=== PATIENT | female | born 1930 | race Caucasian/White ===

== ENCOUNTER 2019-02-03 04:31 | Inpatient (IN) | payer MEDICARE, OTHER ==
[~2019-02-03] VITALS: Ht 162.6 cm; Wt 68.0 kg
[2019-02-03] VITALS (7 sets, daily range): BP systolic 115–138; BP diastolic 48–74
--- OUTSIDE RECORDS SUMMARY | 2019-02-03 04:33 | XMS REPORT ---
Author Author [facility] Address Unknown Phone Unavailable Care Team Providers Care Manager Shipping Name Role Phone Unavailable Unavailable Payers Payer Name Policy Type Policy Number Effective Date Expiration Date Problems This patient has no known problems. Allergies, Adverse Reactions, Alerts Allergy Name Allergy Type Status Severity Reaction(s) Onset Date Inactive Date Treating Clinician Comments mexiletine DA Active U 2014-01-04 00:00:00 metoclopramide DA Active U 2014-01-04 00:00:00 .DIPYRIDAM DA Active U 2002-04-13 00:00:00 BANDAIDS DA Active U 2002-04-13 00:00:00 Medications This patient has no known medications.
--- OUTSIDE RECORDS SUMMARY | 2019-02-03 04:33 | XMS REPORT ---
Author Author Harley Bray [facility] eClinicalWorks Address Unknown Phone Unavailable Care Team Providers Care Dental Assistant Name Role Phone Harley Bray Unavailable Allergies, Adverse Reactions, Alerts Substance Reaction Event Type N.K.D.A. Info Not Available Non Drug Allergy Problems Problem Type Condition Code Onset Dates Condition Status Problem Knee osteoarthritis M17.9 Active Problem Hip pain M25.559 Active Problem Leg pain M79.606 Active Assessment Knee osteoarthritis M17.9 Active Assessment Hip pain M25.559 Active Assessment Leg pain M79.606 Active Medications Medication Code System Code Instructions Start Date End Date Status Dosage Gemfibrozil [facility] 12073378417 600 MG Orally Twice a day Active 1 tablet Clonazepam [facility] 40407593195 0.5 MG Orally Once a day Active 1 tablet at bedtime Meclizine HCl [facility] 89929319728 25 MG Orally Once a day Active 1 tablet as needed Atenolol [facility] 43547571750 25 MG Orally Once a day Active 1 tablet Xarelto [facility] 89064505449 15 MG Orally Once a day Active 1 tablet with food Quetiapine Fumarate ND 94734160932 25 MG Orally Once a day Active 1 tablet Synvisc One [facility] 37471816589 48 MG/6ML Intra-articular January 17, 2019 Active bl knees Gabapentin ND 44848513654 100 MG Orally qhs January 17, 2019 Active 1 capsule Prilosec [facility] [address]-29 20 MG Orally Once a day Active 1 capsule Vital Signs Date/Time: January 17, 2019 BMI 22.68 Index Weight 124.0 lbs Height 62 in Temperature 98.6 F Cardiac Monitoring Heart Rate 62 /min Blood Pressure Diastolic 64 mm Hg Blood Pressure Systolic 124 mm Hg Results No Known Results Summary Purpose eClinicalWorks Submission
--- OUTSIDE RECORDS SUMMARY | 2019-02-03 04:33 | XMS REPORT | Continuity of Care Document ---
Author Author [facility] Address Unknown Phone Unavailable Problems Problem Status Onset Date Classification Date Reported Comments Source Knee osteoarthritis Active Problem 01/19/2019 Karthikeyancarleen Ramos Hip pain Active Problem 01/19/2019 Karthikeyan Delucaer Leg pain Active Problem 01/19/2019 Karthikeyan Ramos Medications Medication Details Route Status Patient Instructions Ordering Provider Order Date Source Synvisc One bl knees Intra-articular Active 48 MG/6ML Intra-articular Katarina 01/17/2019 Karthikeyan Ramos Gabapentin 1 capsule Orally Active 100 MG Orally qhs Katarina 01/17/2019 Karthikeyan Ramos Gemfibrozil 1 tablet Orally Active 600 MG Orally Twice a day Katarina Karthikeyan Ramos Clonazepam 1 tablet at bedtime Orally Active 0.5 MG Orally Once a day Katarina Karthikeyan Ramos Meclizine HCl 1 tablet as needed Orally Active 25 MG Orally Once a day Katarina Karthikeyan Ramos Atenolol 1 tablet Orally Active 25 MG Orally Once a day Katarina Karthikeyan Ramos Xarelto 1 tablet with food Orally Active 15 MG Orally Once a day Katarina Karthikeyan Ramos Quetiapine Fumarate 1 tablet Orally Active 25 MG Orally Once a day Katarina Karthikeyan Ramos Prilosec 1 capsule Orally Active 20 MG Orally Once a day Katarina Karthikeyan Ramos Allergies, Adverse Reactions, Alerts Substance Category Reaction Severity Reaction type Status Date Reported Comments Source N.K.D.A. Adverse Reaction Info Not Available Adverse Reaction Active 01/17/2019 Karthikeyan Ramos Immunizations Immunization Date Given Site Status Last Updated Comments Source Results Order Name Results Value Reference Range Date Interpretation Comments Source Vital Signs Vital Sign Value Date Comments Source Weight 124.0 01/17/2019 Karthikeyan Ramos Height 62 01/17/2019 Karthikeyan Ramos Temperature Oral (F) 98.6 F 01/17/2019 Karthikeyan Ramos Heart Rate 62 01/17/2019 Karthikeyan Ramos Diastolic (mm Hg) 64 01/17/2019 Karthikeyan Ramos Systolic (mm Hg) 124 01/17/2019 Karthikeyan Ramos Encounters Location Location Details Encounter Type Encounter Number Reason For Visit Attending Provider ADM Date DC Date Status Source Procedures Procedure Code Date Perfomer Comments Source
[2019-02-03 05:21] LABS: EOSINOPHILS # (AUTO) 0.1 (0.0-0.4); EOSINOPHILS % 1.1 % (0.0-6.0); LYMPHOCYTES # (AUTO) 1.3 (1.0-3.2); LYMPHOCYTES % 14.1 % (18.0-39.1); MEAN CORPUSCULAR HEMOGLOBIN 20.6 pg (28-32); MEAN CORPUSCULAR HGB CONC 25.9 g/dL (31-35); MEAN CORPUSCULAR VOLUME 79.4 fL (81-99); MONOCYTES # (AUTO) 0.5 (0.2-0.8); MONOCYTES % 5.7 % (4.4-11.3); NEUTROPHILS % 78.6 % (38.7-80.0); PLATELET COUNT 456 x10e3/uL (140-360); RED BLOOD COUNT 1.75 x10e6/uL (3.6-5.1)
[2019-02-03 05:32] LABS: INR 2.08; PROTHROMBIN TIME 24.1 seconds (11.9-14.5)
[2019-02-03 05:32] LABS: HEMATOCRIT 13.9 % (34.2-44.1); HEMOGLOBIN 3.6 g/dL (12.0-16.0)
[2019-02-03 05:33] LABS: PARTIAL THROMBOPLASTIN TIME 34.2 seconds (23.8-35.5)
--- NOTE | 2019-02-03 05:33 | Diagnostic Imaging Report ---
History:Syncope Comparison studies: None Technique: Axial images were obtained from the skull base to the vertex. Coronal and sagittal images reconstructed from the axial data. Dose modulation, iterative reconstruction, and/or weight based adjustment of the mA/kV was utilized to reduce the radiation dose to as low as reasonably achievable. Intravenous contrast: None Findings: Scalp/skull: No abnormalities. Extra-axial spaces: No masses. No fluid collections. Brain sulci: Mild prominent. Ventricles: Mild compensatory dilatation. No hydrocephalus. Parenchyma: Scattered, ill-defined hypodensities in the supratentorial white matter are small vessel ischemic changes. No masses, hemorrhage, acute or chronic cortical vascular insults. Sellar/suprasellar region: No abnormalities. Craniocervical junction: Patent foramen magnum. No Chiari one malformation. Incidental findings: Atherosclerotic calcifications in the carotid siphons . Impression: No acute abnormalities. Chronic findings: 1. Mild generalized volume loss. 2. Mild supratentorial white matter small vessel ischemic changes. Signed by: Dr. David Gresham M.D. on 02/03/2019 5:30 AM
[2019-02-03 05:40] LABS: ALBUMIN 2.2 g/dL (3.5-5.0); ALBUMIN/GLOBULIN RATIO 0.7 (0.8-2.0); ALKALINE PHOSPHATASE 43 IU/L (40-150); ANION GAP 13.4 mmol/L (8-16); BLOOD UREA NITROGEN 53 mg/dL (7-26); BUN/CREATININE RATIO 38 (6-25); CALCIUM 8.2 mg/dL (8.4-10.2); CARBON DIOXIDE 18 mmol/L (22-29); CHLORIDE 109 mmol/L (98-107); CREATINE KINASE 43 IU/L (29-168); CREATININE, SERUM 1.41 mg/dL (0.57-1.11); EST GLOMERULAR FILTRATION RATE 35 ML/MIN (60-); GLUCOSE 235 mg/dL (74-118); LIPASE 37 U/L (8-78); POTASSIUM 5.4 mmol/L (3.5-5.1); SODIUM 135 mmol/L (136-145)
--- NOTE | 2019-02-03 05:42 | Diagnostic Imaging Report ---
Examination: Single AP view of the chest. COMPARISON: None. INDICATION: Syncope IMPRESSION: 1. Lines and Tubes: None 2. Lungs are grossly clear. No consolidation or effusion. 3. Cardiomediastinal silhouette is normal. Pulmonary vasculature is normal. 4. No acute bony abnormalities. Signed by: Dr. Brad Valadez M.D. on 02/03/2019 5:39 AM
[2019-02-03 05:44] LABS: ALANINE AMINOTRANSFERASE < 6 IU/L (0-55)
[2019-02-03] MEDS ORDERED: SODIUM CHLORIDE 0.9% 250ML 250 ML IV ONE (05:45)
--- NOTE | 2019-02-03 06:06 | NUR ---
CONSENT OBTAINED FOR TRANSFUSION OF BLOOD PRODUCTS
[2019-02-03] MEDS ORDERED: GEMFIBROZIL600 MG PO (06:11)
[2019-02-03] MEDS ORDERED: QUETIAPINE FUMA25 MG PO (06:11)
[2019-02-03] MEDS ORDERED: CLONAZEPAM0.5 MG PO (06:11)
[2019-02-03] MEDS ORDERED: GABAPENTIN100 MG PO (06:11)
[2019-02-03] MEDS ORDERED: ATENOLOL50 MG PO (06:11)
[2019-02-03] MEDS ORDERED: XARELTO15 MG PO (06:11)
[2019-02-03] MEDS ORDERED: GLIPIZIDE XL2.5 MG PO (06:11)
[2019-02-03] MEDS ORDERED: MONTELUKAST SOD10 MG PO (06:11)
--- NOTE | 2019-02-03 06:36 | NUR ---
FIRST UNIT OF BLOOD STARTED, WILL CONTINUE TO MONITOR
[2019-02-03] MEDS ORDERED: SOD POLYSTYRENE SULFONATE SUSP 15 GM/60 ML BTL PO ONE (07:00)
--- NOTE | 2019-02-03 07:01 | NUR ---
REPORT TO NU WEINERN
--- NOTE | 2019-02-03 07:02 | NUR ---
received report from off going nurse. patient in room in bed. receiving blood(1st unit). family at bedside. pending ICU room assignemnt. bed down call light in reach, will continue to monitor.
[2019-02-03] MEDS ORDERED: DEXTROSE 50% SYRINGE 50 ML IV PRN ×2 (07:30→14:00)
[2019-02-03] MEDS ORDERED: CALCIUM GLUCONATE 10% INJ 4.65 MEQ in SODIUM CHLORIDE 0.9% 50ML 50 ML IV ONE (07:45)
[2019-02-03] MEDS ORDERED: FUROSEMIDE INJ 10 MG/ML 2 ML VIAL IV ONE (08:00)
[2019-02-03] MEDS: INSULIN REGULAR, HUMAN 100 UNIT/1 ML 3ML VIAL SQ SCH ×5 (08:42→21:30)
--- NOTE | 2019-02-03 09:10 | NUR ---
completed 1st unit PRBC with LISETTE.
--- NOTE | 2019-02-03 09:23 | NUR ---
started second unit PRBC.
--- NOTE | 2019-02-03 10:28 | NUR ---
patient acidentially removed iv access to left ac. blood products continued in 20g to left forearm. patient, bedding and bedside monitor cleaned.
[2019-02-03] MEDS ORDERED: MONTELUKAST SODIUM 10 MG TAB PO PRN (12:15)
[2019-02-03] MEDS ORDERED: PANTOPRAZOLE 40 MG 10ML VIAL IV SCH (12:30)
[2019-02-03] MEDS ORDERED: ONDANSETRON HCL INJ 2MG/ML 2ML 2 MG/ML VIAL IV PRN (12:30)
[2019-02-03] MEDS ORDERED: HYDRALAZINE HCL 20 MG/ML VIAL IV PRN (12:30)
--- NOTE | 2019-02-03 12:35 | NUR ---
STARTED THIRD UNIT PRBC
[2019-02-03] MEDS ORDERED: FUROSEMIDE INJ 10 MG/ML 4 ML VIAL IV ONE (14:00)
[2019-02-03 14:30] LABS: CREATINE KINASE MB 1.1 ng/mL (0-5.0)
[2019-02-03] MEDS: PANTOPRAZOLE SOD 40 MG TABEC PO SCH ×2 (14:49→17:09)
[2019-02-03] MEDS: GABAPENTIN 100 MG CAP PO SCH (14:49)
[2019-02-03] MEDS: ACETAMINOPHEN 325 MG TAB PO PRN (14:49)
[2019-02-03 14:52] LABS: CLARITY,URINE SL CLOUDY (CLEAR); COLOR,URINE YELLOW (YELLOW)
[2019-02-03 14:53] LABS: LEUKOCYTE ESTERASE ,URINE 2+ (NEGATIVE); NITRITE,URINE NEGATIVE (NEGATIVE)
[2019-02-03 14:54] LABS: BILIRUBIN,URINE NEGATIVE (NEGATIVE); KETONES,URINE NEGATIVE (NEGATIVE); PROTEIN,URINE DIPSTICK NEGATIVE (NEGATIVE); URINE UROBILINOGEN 0.2 mg/dL (0.2 - 1)
[2019-02-03 14:57] LABS: WBC,URINE (MAN) 21-50 /HPF (0-5)
[2019-02-03 14:58] LABS: BACTERIA,URINE MANY /HPF; EPITHELIAL CELLS,URINE RARE /LPF; RBC,URINE 0-5 /HPF (0-5)
[2019-02-03] MEDS ORDERED: INSULIN LISPRO 100 UNIT/1 ML 3ML VIAL SQ SCH (16:30)
[2019-02-03] MEDS: GLIPIZIDE 2.5 MG TABCR PO SCH (17:09)
[2019-02-03] MEDS: QUETIAPINE FUMARATE 25 MG TAB PO SCH (17:09)
[2019-02-03] MEDS: OYST-CAL-D 500MG TABLET PO SCH (17:09)
[2019-02-03] MEDS: GEMFIBROZIL 600 MG TAB PO SCH (17:09)
[2019-02-03 20:06] LABS: HEMATOCRIT 29.2 % (34.2-44.1); HEMOGLOBIN 9.3 g/dL (12.0-16.0)
--- NOTE | 2019-02-03 20:26 | NUR ---
Spoke to Dr. Hubbard regarding recheck of Hgb level of 9.[address] Hubbard ordered to give 1 more unit of PRBC and hold 1 unit PRBC. Total PRBCs to give is 5 units.
[2019-02-03] MEDS ORDERED: CLONAZEPAM 0.5 MG TAB PO SCH (21:00)
[2019-02-03] MEDS ORDERED: SODIUM CHLORIDE 0.9% 250ML 250 ML ONE (22:11)
[2019-02-04] VITALS (21 sets, daily range): BP systolic 91–146; BP diastolic 48–94
[2019-02-04 04:49] LABS: BASOPHILS # (AUTO) 0.1 (0.0-0.1); BASOPHILS % 0.6 % (0.0-1.0); EOSINOPHILS # (AUTO) 0.2 (0.0-0.4); EOSINOPHILS % 1.6 % (0.0-6.0); HEMATOCRIT 33.1 % (34.2-44.1); HEMOGLOBIN 10.8 g/dL (12.0-16.0); LYMPHOCYTES # (AUTO) 2.1 (1.0-3.2); LYMPHOCYTES % 22.6 % (18.0-39.1); MEAN CORPUSCULAR HEMOGLOBIN 26.7 pg (28-32); MEAN CORPUSCULAR HGB CONC 32.6 g/dL (31-35); MEAN CORPUSCULAR VOLUME 81.9 fL (81-99); MONOCYTES # (AUTO) 0.8 (0.2-0.8); MONOCYTES % 8.9 % (4.4-11.3); NEUTROPHILS # (AUTO) 6.3 (2.1-6.9); NEUTROPHILS % 66.1 % (38.7-80.0); PLATELET COUNT 331 x10e3/uL (140-360); RED BLOOD COUNT 4.04 x10e6/uL (3.6-5.1); RED CELL DISTRIBUTION WIDTH 17.2 % (11.7-14.4)
[2019-02-04 05:14] LABS: ANION GAP 11.5 mmol/L (8-16); CALCIUM 8.7 mg/dL (8.4-10.2); CREATININE, SERUM 1.32 mg/dL (0.57-1.11); MAGNESIUM 1.5 MG/DL (1.3-2.1)
[2019-02-04 05:15] LABS: POTASSIUM 3.5 mmol/L (3.5-5.1)
[2019-02-04 05:26] LABS: B-TYPE NATRIURETIC PEPTIDE2 160.9 pg/mL (0-100)
[2019-02-04 05:39] LABS: FREE T4 (FREE THYROXINE) 0.68 ng/dL (0.9-1.8); THYROID STIMULATING HORMONE 1.693 uIU/mL (0.350-4.940)
[2019-02-04 05:41] LABS: FERRITIN 12.36 ng/mL (4.63-204.00)
[2019-02-04 05:52] LABS: FOLATE 13.1 ng/mL (7.0-15.4)
[2019-02-04 06:52] LABS: CREATINE KINASE MB 1.3 ng/mL (0-5.0)
--- NOTE | 2019-02-04 07:20 | NUR ---
PATIENT RECEIVED AWAKE, ALERT AND OX2 TO PERSON AND PLACE. REORIENTED TO DATE AND TIME. RESPIRATIONS ARE EVEN AND UNLABORED AND ON 02 AT 2 LITERS PER NASAL CANNULA AND TOLERATING WELL WITH 02 SATS AT 100%. DAUGHTER AT BEDSIDE. V/S ARE STABLE.
[2019-02-04] MEDS: GLIPIZIDE 2.5 MG TABCR PO SCH ×2 (07:30→16:56)
[2019-02-04] MEDS: PANTOPRAZOLE SOD 40 MG TABEC PO SCH (07:30)
[2019-02-04] MEDS: INSULIN REGULAR, HUMAN 100 UNIT/1 ML 3ML VIAL SQ SCH ×4 (07:30→20:26)
--- NOTE | 2019-02-04 07:30 | NUR ---
PATIENT RECEIVED SEDATED ON PROPOFOL DRIP AT 30MCG AND FENTANYL DRIP AT 25MCG AND TOLERATING WELL WHILE ON ETT TO VENT: PRVC-18; FIO2-40%; TV-450 AND PEEP-5 AND 02 SATS ARE 100%. RESPIRATIONS ARE EVEN AND UNLABORED. V/S ARE STABLE.
--- NOTE | 2019-02-04 07:35 | NUR ---
DISREGARD PREVIOUS ENTRY. ENTERED IN ERROR ON WRONG PATIENT
[2019-02-04] MEDS ORDERED: CLONAZEPAM 0.5 MG TAB PO SCH (09:00)
[2019-02-04] MEDS: GEMFIBROZIL 600 MG TAB PO SCH ×2 (09:21→16:56)
[2019-02-04] MEDS: CLONAZEPAM 0.5 MG TAB PO SCH ×2 (09:21→16:56)
[2019-02-04] MEDS: ATENOLOL 50 MG TAB PO SCH (09:22)
[2019-02-04] MEDS: QUETIAPINE FUMARATE 25 MG TAB PO SCH ×2 (09:22→20:33)
[2019-02-04] MEDS: OYST-CAL-D 500MG TABLET PO SCH ×2 (09:22→16:56)
[2019-02-04] MEDS ORDERED: FUROSEMIDE INJ 10 MG/ML 4 ML VIAL ONE (09:31)
--- NOTE | 2019-02-04 10:00 | NUR ---
DR. HERNANDEZ HERE TO SEE PATIENT FOR DR. CARRASCO
[2019-02-04] MEDS: CEFEPIME 1GM/NS 0.9% 50 ML 50 ML IV SCH (12:00)
[2019-02-04] MEDS ORDERED: PANTOPRAZOLE INJ 40 MG in SODIUM CHLORIDE 0.9% 50ML 50 ML IV SCH (14:30)
[2019-02-04 15:26] LABS: BASOPHILS # (AUTO) 0.1 (0.0-0.1); BASOPHILS % 0.8 % (0.0-1.0); EOSINOPHILS # (AUTO) 0.2 (0.0-0.4); EOSINOPHILS % 2.4 % (0.0-6.0); HEMATOCRIT 32.3 % (34.2-44.1); HEMOGLOBIN 10.6 g/dL (12.0-16.0); LYMPHOCYTES # (AUTO) 2.1 (1.0-3.2); LYMPHOCYTES % 26.1 % (18.0-39.1); MEAN CORPUSCULAR HEMOGLOBIN 26.9 pg (28-32); MEAN CORPUSCULAR HGB CONC 32.8 g/dL (31-35); MONOCYTES # (AUTO) 0.9 (0.2-0.8); MONOCYTES % 11.4 % (4.4-11.3); NEUTROPHILS # (AUTO) 4.7 (2.1-6.9); NEUTROPHILS % 58.9 % (38.7-80.0); PLATELET COUNT 303 x10e3/uL (140-360); RED BLOOD COUNT 3.94 x10e6/uL (3.6-5.1); RED CELL DISTRIBUTION WIDTH 17.4 % (11.7-14.4)
[2019-02-04] MEDS ORDERED: SODIUM CHLORIDE 0.9% 250ML 250 ML ONE (15:33)
--- NOTE | 2019-02-04 18:18 | Consultation ---
DATE OF CONSULTATION: CHIEF COMPLAINT: GI bleed. HISTORY OF PRESENT ILLNESS: Very pleasant 88-year-old lady, came in hemoglobin of 3.9, associated with melena for a month. She takes Xarelto. She denies abdominal pain. She denies hematemesis. PAST MEDICAL HISTORY: Diabetes, neuropathy, atrial fibrillation, and hypertension. PAST SURGICAL HISTORY: Cholecystectomy, tooth extraction, appendectomy, and hysterectomy. FAMILY HISTORY: Noncontributory. SOCIAL HISTORY: The patient is retired. She has no toxic habits. ALLERGIES: NO SIGNIFICANT. MEDICATIONS: See list that includes Xarelto and occasional Prilosec. PHYSICAL EXAMINATION: VITAL SIGNS: Blood pressure 140/80, pulse 70, temperature 98. GENERAL: Well-nourished elderly lady in no distress. HEENT: No pallor. HEART: No rales. LUNGS: Clear. ABDOMEN: Soft, nontender. EXTREMITIES: No edema. ASSESSMENT AND PLAN: Upper gastrointestinal bleed with ulcer. The patient is on Xarelto, we will start Protonix drip. Transfuse as necessary, she already had 5 units of packed rbcs and EGD in the morning. MD KERWIN TyO/MODFermín /[id number]
--- NOTE | 2019-02-04 18:53 | Consultation ---
DATE OF CONSULTATION: 02/04/2019 Cardiology Consultation Thank you so much for asking us to see this nice lady again in consultation. Ms. Garcia is an elderly 88-year-old woman, followed in our office by Dr. Barnes. CHIEF COMPLAINT: She presents to the emergency room today with complaints of weakness and passing out. HISTORY OF PRESENT ILLNESS: Primarily obtained from her son, who reports that she had gone to the bathroom, sitting on the toilet, and became unresponsive. He thinks he noticed some tonic-clonic motion. She has no known history of seizure disorder. The patient admits that she has been having black stools for a couple of weeks, but did not seek further evaluation of this problem. PAST MEDICAL HISTORY: Significant for intermittent atrial fibrillation with probable previous TIAs or strokes. She is known to have nonsustained ventricular tachycardia and wandering atrial pacemaker, longstanding diabetes, hyperlipidemia, and some renal insufficiency. PAST SURGICAL HISTORY: Includes bladder surgery, foot surgery, and hysterectomy. FAMILY HISTORY: Father of myocardial infarction, age 84. HOME MEDICATIONS: Include Prilosec 20 mg daily, glipizide 2.5 mg twice a day, gemfibrozil 600 mg twice a day, meclizine p.r.n., atenolol 50 mg half tablet daily, and Xarelto 15 mg daily. ALLERGIES: SHE REPORTS BEING ALLERGIC TO MEXILETINE. PHYSICAL EXAMINATION: GENERAL: At this time shows a very elderly white woman, who is awake, poor historian, perhaps unreliable, thin. VITAL SIGNS: Blood pressure is 100/60, heart rate is 70 with prematures, both PACs and PVCs. HEAD, EYES, EARS, NOSE, AND THROAT: Unremarkable. NECK: No jugular venous distention. THORAX: Heart sounds S1, S2 are equal with prematures. There are faint crackles in the right upper lobe. ABDOMEN: Protuberant, nontender. No masses. EXTREMITIES: Thin. No cyanosis, clubbing, edema. PERTINENT INITIAL LABORATORY: Show hemoglobin of 3.6, INR 2.0, platelet count 456,000. ASSESSMENTS: 1. Profound anemia. 2. Gastrointestinal bleeding. 3. History of intermittent atrial fibrillation. 4. Diabetes. PLAN: I agree with the transfusion. We will withhold Xarelto. We will follow her closely with you. Thank you for asking me to see her in consultation. MD GLADIS Mclaughlin /[id number]
--- NOTE | 2019-02-04 21:45 | NUR ---
Patient brought icu, patient is stable, patient has a family member at the bed side, patient POA came in at about 0300, ICU nurse endorse to me that patient POA has agreed to sign consent, she refused to sign when she came in, she also refused am care of patient, stated was too early.
[2019-02-04] MEDS: PANTOPRAZOLE INJ 40 MG in SODIUM CHLORIDE 0.9% 50ML 50 ML IV SCH (22:24)
[2019-02-05] VITALS (7 sets, daily range): BP systolic 113–158; BP diastolic 55–84
--- NOTE | 2019-02-05 00:08 | NUR ---
Patient POA refused to consent for EGD, states wants to speak to Pravinadi first in the morning before signing.
[2019-02-05] MEDS: CEFEPIME 1GM/NS 0.9% 50 ML 50 ML IV SCH ×2 (00:55→12:30)
[2019-02-05] MEDS: PANTOPRAZOLE INJ 40 MG in SODIUM CHLORIDE 0.9% 50ML 50 ML IV SCH ×5 (03:37→23:30)
--- NOTE | 2019-02-05 06:14 | Diagnostic Imaging Report ---
Examination: Single AP view of the chest. COMPARISON: AP chest 02/03/2019 INDICATION: Aspiration pneumonia IMPRESSION: 1. Lines and Tubes: None 2. Lungs are well-inflated. Rounded convexity projecting in the posterior retrocardiac region, which may represent a hiatal hernia. No consolidation or effusion. Recommend chest PA and lateral for further evaluation. 3. Stable enlargement of the cardiac silhouette. Pulmonary vasculature is normal. 4. No acute bony abnormalities. Signed by: Dr. Brad Valadez M.D. on 02/05/2019 6:11 AM
[2019-02-05 06:38] LABS: ANION GAP 12.4 mmol/L (8-16); CALCIUM 8.8 mg/dL (8.4-10.2); CREATININE, SERUM 1.23 mg/dL (0.57-1.11); MAGNESIUM 1.6 MG/DL (1.3-2.1); POTASSIUM 3.4 mmol/L (3.5-5.1)
--- NOTE | 2019-02-05 07:29 | NUR ---
Patient condition throughout the day was stable, patient endorsed to next shift for continuity of care.
[2019-02-05] MEDS: GLIPIZIDE 2.5 MG TABCR PO SCH ×2 (07:30→17:40)
[2019-02-05] MEDS: INSULIN REGULAR, HUMAN 100 UNIT/1 ML 3ML VIAL SQ SCH ×4 (07:30→21:37)
[2019-02-05] MEDS ORDERED: ACETAMINOPHEN 1000 MG/100 ML IV ONE (07:45)
[2019-02-05] MEDS: GEMFIBROZIL 600 MG TAB PO SCH ×2 (09:00→17:40)
[2019-02-05] MEDS: QUETIAPINE FUMARATE 25 MG TAB PO SCH ×2 (09:00→21:37)
[2019-02-05] MEDS: CLONAZEPAM 0.5 MG TAB PO SCH ×2 (09:00→17:40)
[2019-02-05] MEDS: OYST-CAL-D 500MG TABLET PO SCH ×2 (09:00→17:40)
--- NOTE | 2019-02-05 09:51 | NUR ---
Patient is on the schedule for EGD today by Dr. Lara. The POA is present and will not sign the consent until she has spoken to Dr. Lara about the procedure. Paged Dr. Lara to notify him and also to see if he needs cardiac clearance on this patient. Waiting nurses' association counselor back.
--- NOTE | 2019-02-05 10:05 | NUR ---
PRADEEPA signed the consent.
--- NOTE | 2019-02-05 11:30 | NUR ---
Notified Dr. Alvarez that photo lab technician reported a type 2 heart block on the monitor , EKG was done which now shows SR with type 1 block, no new orders received at this time. Also notified Dr. Alvarez that patient is scheduled for EGD later today, he stated, "that is fine".
--- NOTE | 2019-02-05 12:53 | NUR ---
ST note: Order for bedside swallow eval noted. Pt NPO for EGD. Will f/u later today time permitting or tomorrow 02/06/19.
[2019-02-05] MEDS ORDERED: POTASSIUM CHLORIDE 20 MEQ TAB CR PO STA (13:11)
[2019-02-05] MEDS ORDERED: BENZOCAINE/TETRACAINE/BUTAMBEN AERO SPRAY 56 GM CAN ONE (14:38)
--- NOTE | 2019-02-05 15:04 | NUR ---
CM TO BEDSIDE TO GIVE IMM LETTER. PATIENT NOT IN ROOM D/T EGD. CM WILL F/U ON 02/06/19 TO GIVE IMM.
--- NOTE | 2019-02-05 15:35 | NUR ---
Received recovery report from Heather , Patient is s/p EGD and is coming to back to room 294.
--- NOTE | 2019-02-05 16:00 | NUR ---
Patient arrived back to the floor , She is awake alert and oriented x2. Her son is with her. She has no complaints at this time and denies needing anything. Will continue to monitor.
[2019-02-05] MEDS: GABAPENTIN 100 MG CAP PO SCH (17:39)
[2019-02-05] MEDS: ATENOLOL 50 MG TAB PO SCH (17:40)
--- NOTE | 2019-02-05 19:10 | NUR ---
Bedside rounds completed with morning nurse. Pt alert to name sitting on BS commode. Denies pain at this time. No acute distress noted. Family at bedside. Call wetzel within reach. Bed low and locked.
[2019-02-05] MEDS ORDERED: PROPOFOL IV EMULSION 10 MG/ML 20 ML VIAL ONE (20:07)
[2019-02-05] MEDS ORDERED: PANTOPRAZOLE 40 MG 10ML VIAL ONE (23:07)
[2019-02-06] VITALS (7 sets, daily range): BP systolic 120–139; BP diastolic 56–65
[2019-02-06] MEDS ORDERED: SODIUM CHLORIDE 0.9% 50ML 50 ML ONE ×3 (00:12→13:20)
[2019-02-06] MEDS: CEFEPIME 1GM/NS 0.9% 50 ML 50 ML IV SCH ×2 (00:32→13:00)
[2019-02-06] MEDS ORDERED: PANTOPRAZOLE 40 MG 10ML VIAL ONE ×4 (02:32→20:43)
[2019-02-06 04:43] LABS: BASOPHILS # (AUTO) 0.1 (0.0-0.1); EOSINOPHILS # (AUTO) 0.4 (0.0-0.4); EOSINOPHILS % 5.6 % (0.0-6.0); HEMATOCRIT 33.1 % (34.2-44.1); HEMOGLOBIN 10.5 g/dL (12.0-16.0); LYMPHOCYTES % 15.3 % (18.0-39.1); MEAN CORPUSCULAR HGB CONC 31.7 g/dL (31-35); MONOCYTES # (AUTO) 0.8 (0.2-0.8); NEUTROPHILS # (AUTO) 4.4 (2.1-6.9); NEUTROPHILS % 65.7 % (38.7-80.0); PLATELET COUNT 289 x10e3/uL (140-360); RED BLOOD COUNT 3.89 x10e6/uL (3.6-5.1)
[2019-02-06] MEDS: PANTOPRAZOLE INJ 40 MG in SODIUM CHLORIDE 0.9% 50ML 50 ML IV SCH ×3 (04:45→13:30)
[2019-02-06 04:47] LABS: MEAN CORPUSCULAR VOLUME 85.1 fL (81-99)
[2019-02-06 04:56] LABS: ANION GAP 10.5 mmol/L (8-16); CALCIUM 8.6 mg/dL (8.4-10.2); CREATININE, SERUM 1.25 mg/dL (0.57-1.11); MAGNESIUM 1.7 MG/DL (1.3-2.1); POTASSIUM 3.5 mmol/L (3.5-5.1)
[2019-02-06] MEDS: INSULIN REGULAR, HUMAN 100 UNIT/1 ML 3ML VIAL SQ SCH ×4 (07:30→20:57)
[2019-02-06] MEDS ORDERED: BISACODYL 5 MG TAB EC PO NR (07:30)
[2019-02-06] MEDS ORDERED: PEG (High)/E-LYTE SOLN 4,000 ML BTL PO NR (08:30)
--- NOTE | 2019-02-06 10:00 | NUR ---
Bowel prep started for colonoscopy scheduled 02/07/19.
[2019-02-06] MEDS: GABAPENTIN 100 MG CAP PO SCH (10:11)
[2019-02-06] MEDS: OYST-CAL-D 500MG TABLET PO SCH ×2 (10:11→16:55)
[2019-02-06] MEDS: QUETIAPINE FUMARATE 25 MG TAB PO SCH (10:11)
[2019-02-06] MEDS: ATENOLOL 50 MG TAB PO SCH (10:11)
[2019-02-06] MEDS: GLIPIZIDE 2.5 MG TABCR PO SCH ×2 (10:11→16:55)
[2019-02-06] MEDS: GEMFIBROZIL 600 MG TAB PO SCH ×2 (10:11→16:55)
[2019-02-06] MEDS: CLONAZEPAM 0.5 MG TAB PO SCH ×2 (10:11→16:55)
[2019-02-06] MEDS: ACETAMINOPHEN 325 MG TAB PO PRN (11:15)
--- NOTE | 2019-02-06 17:45 | NUR ---
Patient has almost finished Golytely bowel prep. Stools is watery with small pieces of brown stool. Will continue to monitor bowel movements until stool is clear.
--- NOTE | 2019-02-06 18:10 | NUR ---
Called to the room by patient's family member to say they were having trouble getting patient to respond. Patient is laying in bed, she responds to voice easily but she is lethargic and falls back asleep. VS: T: 97.3 BP:131/76 P: 72 R:18 02: 96% on 2L oxygen. Notified AGATHA Frances. New orders received. Will place anything causing sedation on hold , Seroquel and Klonipin and continue to monitor.
--- NOTE | 2019-02-06 19:16 | NUR ---
Report received and walking rounds complete. Pt resting in bed. Pt family at bedside. All safety measures ensured.
--- NOTE | 2019-02-06 20:52 | NUR ---
Dr. Lara in to see pt. Explained pt can try to finish prep if possible and anticipate clear stool for colonoscopy.
[2019-02-06] MEDS: PANTOPRAZOL 40MG/SOD CHL 0.9% 50 ML IV SCH (20:57)
[2019-02-07] MEDS: CEFEPIME 1GM/NS 0.9% 50 ML 50 ML IV SCH ×2 (00:48→11:51)
[2019-02-07] MEDS: PANTOPRAZOL 40MG/SOD CHL 0.9% 50 ML IV SCH ×3 (02:46→12:31)
--- NOTE | 2019-02-07 03:20 | NUR ---
Pt has tried to continue to drink Concha prep. Dr. Lara stated earlier that is ok if pt doesn't finish but she should try to. Stools are clearer liquid but still have some small solid stools.
[2019-02-07 04:12] VITALS: BP 148/66
[2019-02-07 06:09] LABS: BASOPHILS # (AUTO) 0.1 (0.0-0.1); BASOPHILS % 1.1 % (0.0-1.0); EOSINOPHILS # (AUTO) 0.4 (0.0-0.4); EOSINOPHILS % 5.5 % (0.0-6.0); HEMATOCRIT 34.7 % (34.2-44.1); HEMOGLOBIN 10.9 g/dL (12.0-16.0); LYMPHOCYTES # (AUTO) 1.4 (1.0-3.2); LYMPHOCYTES % 20.4 % (18.0-39.1); MEAN CORPUSCULAR HEMOGLOBIN 26.6 pg (28-32); MEAN CORPUSCULAR HGB CONC 31.4 g/dL (31-35); MEAN CORPUSCULAR VOLUME 84.6 fL (81-99); MONOCYTES # (AUTO) 0.8 (0.2-0.8); MONOCYTES % 11.3 % (4.4-11.3); NEUTROPHILS # (AUTO) 4.3 (2.1-6.9); NEUTROPHILS % 61.4 % (38.7-80.0); PLATELET COUNT 281 x10e3/uL (140-360); RED CELL DISTRIBUTION WIDTH 17.9 % (11.7-14.4)
[2019-02-07 06:30] LABS: ALBUMIN 2.6 g/dL (3.5-5.0); ALBUMIN/GLOBULIN RATIO 0.7 (0.8-2.0); ALKALINE PHOSPHATASE 59 IU/L (40-150); ANION GAP 12.2 mmol/L (8-16); BLOOD UREA NITROGEN 24 mg/dL (7-26); BUN/CREATININE RATIO 23 (6-25); CALCIUM 9.2 mg/dL (8.4-10.2); CARBON DIOXIDE 21 mmol/L (22-29); CHLORIDE 106 mmol/L (98-107); CREATININE, SERUM 1.06 mg/dL (0.57-1.11); EST GLOMERULAR FILTRATION RATE 49 ML/MIN (60-); GLUCOSE 88 mg/dL (74-118); POTASSIUM 3.2 mmol/L (3.5-5.1); SODIUM 136 mmol/L (136-145)
[2019-02-07 06:33] LABS: ALANINE AMINOTRANSFERASE < 6 IU/L (0-55)
--- NOTE | 2019-02-07 07:20 | NUR ---
PATIENT IN STABLE CONDITION WITH NO S/S OF RESPIRATORY DISTRESS. NO PAIN VOICED. IV PROTONIX INFUSING. TELEMETRY AND O2 APPLIED. PATIENT IS NPO FOR COLONOSCOPY TODAY- DIAPER APPLIED. BED ALARM ON. FAMILY MEMBERS PRESENT IN ROOM. CALL LIGHT IS WITHIN REACH, PATIENT AND FAMILY INSTRUCTED TO CALL FOR ASSISTANCE NEEDED.
[2019-02-07] MEDS: INSULIN REGULAR, HUMAN 100 UNIT/1 ML 3ML VIAL SQ SCH ×4 (07:30→21:55)
[2019-02-07] MEDS: GLIPIZIDE 2.5 MG TABCR PO SCH ×2 (07:30→16:38)
[2019-02-07 07:53] VITALS: BP 116/55
[2019-02-07 08:00] VITALS: BP 116/55
[2019-02-07] MEDS: OYST-CAL-D 500MG TABLET PO SCH ×2 (09:00→16:38)
[2019-02-07] MEDS: GEMFIBROZIL 600 MG TAB PO SCH ×2 (09:00→16:38)
--- NOTE | 2019-02-07 10:46 | NUR ---
ST NOTE: Pt scheduled for colonoscopy after 12:00 today, expect pt to be sedated and will take several hours to recover from sedation/procedure. Will complete MBS on 02/08/19-handoff to [facility] radi[facility], she will phone RN with plan for MBS
[2019-02-07 12:00] VITALS: BP 113/65
--- NOTE | 2019-02-07 12:51 | NUR ---
PATIENT OFF THE UNIT TO PROCEDURE IN ENDO. PATIENT IN STABLE CONDITION WITH NO S/S OF RESPIRATORY DISTRESS. 02 AND TELEMETRY APPLIED.
--- NOTE | 2019-02-07 13:03 | NUR ---
IMM LETTER EXPLAINED TO PT AND FAMILY. DTR STATES SHE SIGNS ALL PAPERWORK FOR THE PT. PT AGREEABLE. STATES THE PT WAS ON SERVICE W [facility], BUT ENDED LAST MONTH. STATES IF HH IS NEEDED THEY WOULD LIKE TO USE [facility] AGAIN. STATES SHE HAS A BSC AND WALKER. THE FAMILY INQUIRED ABOUT A NONINVASIVE URINARY CATHETER W SUCTION. INFORMED THE FAMILY TO CHECK W THEIR PCP ABOUT THIS ITEM. EXPLAINED THE IMM LETTER. VERBALIZED UNDERSTANDING. IMM LETTER WAS SIGNED. COPY TO PT AND FAMILY AND COPY TO THE CHART.
[2019-02-07] MEDS ORDERED: LIDOCAINE HCL 2% LOCAL INJ 5 ML SDV VIAL INJ ONE (13:30)
[2019-02-07] MEDS ORDERED: PROPOFOL IV EMULSION 10 MG/ML 20 ML VIAL ONE (13:30)
--- NOTE | 2019-02-07 14:09 | NUR ---
PATIENT BACK ON THE UNIT AT 1352 PER BED. PATIENT HAD A BM ON THE PAPER PAD- PATIENT CLEANED AND DIAPER APPLIED. IV PROTONIX INFUSING. AIR PUMP AND BED ALARM APPLIED.
--- NOTE | 2019-02-07 14:49 | NUR ---
WOUND CARE SCREEN: THIS IS AN 88 YEAR OLD FEMALE PATIENT ADMITTED TO [facility] FOR ANEMIA. PATIENT DOES NOT HAVE ANY WOUNDS. LISE SCALE IS 11; AND APPROPRIATE FOR THIS PATIENT. APPROPRIATE PUP INTERVENTIONS ARE IN PLACE; ALTERNATING PRESSURE RELIEF MATTRESS IN PLACE, BILATERAL HEEL PROTECTORS WITH PILLOW SUSPENSION, AND TURN EVERY 2 HOURS AND PRN. THANK YOU FOR THIS WOUND CARE SCREEN. Addendum: 02/07/19 at 1456 by Nany Franco RN Amended: Links added.
[2019-02-07 15:38] VITALS: BP 155/65
--- NOTE | 2019-02-07 15:41 | NUR ---
CALL PLACED OUT TO DR. CARRASCO REGARDING DIET ORDERS- AWAITING CALLBACK.
--- NOTE | 2019-02-07 15:56 | NUR ---
RECEIVED CALLBACK FROM DR. DANILO OCAMPO FOR GI SOFT DIET AND CHANGE IV PROTONIX TO PO PROTONIX 40MG DAILY.
[2019-02-07] MEDS: GABAPENTIN 100 MG CAP PO SCH (16:38)
[2019-02-07] MEDS: ATENOLOL 50 MG TAB PO SCH (16:38)
[2019-02-07] MEDS: ACETAMINOPHEN 325 MG TAB PO PRN (17:54)
--- NOTE | 2019-02-07 19:15 | NUR ---
PATIENT IN STABLE CONDITION WITH NO S/S OF RESPIRATORY DISTRESS. NO PAIN INDICATED. DIAPER APPLIED. BED ALARM ON. FAMILY MEMBERS PRESENT IN ROOM. CALL LIGHT IS WITHIN REACH, INSTRUCTED TO CALL FOR ASSISTANCE NEEDED. BEDSIDE REPORT GIVEN TO ONCOMING NURSE.
--- NOTE | 2019-02-07 19:23 | NUR ---
Walking rounds/bedside report received. Pt resting in bed and in no apparent distress. All safety measures ensured. Pt family at bedside.
[2019-02-07 20:00] VITALS: BP 131/60
--- NOTE | 2019-02-07 22:40 | NUR ---
Pt family had questions /concerns regarding pt procedure today. Pt daughter repeated asked for Dr. Lara and wanting to see if he would coming to speak to pt. Dr. Vickers in rounding for Dr. Lara and MD stated that Jane Causey will be by tomorrow morning to see/speak with pt and pt family. Informed pt and pts daughter.
[2019-02-08] VITALS: BP 125/58
[2019-02-08] MEDS: CEFEPIME 1GM/NS 0.9% 50 ML 50 ML IV SCH ×2 (00:03→11:26)
[2019-02-08 04:00] VITALS: BP 165/72
[2019-02-08 06:24] LABS: BASOPHILS # (AUTO) 0.1 (0.0-0.1); BASOPHILS % 0.6 % (0.0-1.0); EOSINOPHILS # (AUTO) 0.3 (0.0-0.4); HEMATOCRIT 33.4 % (34.2-44.1); HEMOGLOBIN 10.4 g/dL (12.0-16.0); LYMPHOCYTES # (AUTO) 1.4 (1.0-3.2); LYMPHOCYTES % 15.1 % (18.0-39.1); MEAN CORPUSCULAR HEMOGLOBIN 26.5 pg (28-32); MEAN CORPUSCULAR HGB CONC 31.1 g/dL (31-35); MEAN CORPUSCULAR VOLUME 85.2 fL (81-99); MONOCYTES # (AUTO) 0.8 (0.2-0.8); MONOCYTES % 8.9 % (4.4-11.3); NEUTROPHILS # (AUTO) 6.5 (2.1-6.9); NEUTROPHILS % 72.1 % (38.7-80.0); PLATELET COUNT 289 x10e3/uL (140-360); RED BLOOD COUNT 3.92 x10e6/uL (3.6-5.1); RED CELL DISTRIBUTION WIDTH 17.9 % (11.7-14.4)
[2019-02-08 06:35] LABS: ANION GAP 10.5 mmol/L (8-16); CREATININE, SERUM 0.94 mg/dL (0.57-1.11); POTASSIUM 3.5 mmol/L (3.5-5.1)
--- NOTE | 2019-02-08 07:00 | NUR ---
PATIENT IS IN STABLE CONDITION WITH NO S/S OF RESPIRATORY DISTRESS. NO PAIN VOICED. O2 AND TELE APPLIED. BED ALARM ON. DAUGHTER PRESENT IN ROOM. DIAPER APPLIED. CALL LIGHT IS WITHIN REACH, PATIENT INSTRUCTED TO CALL FOR ASSISTANCE NEEDED.
[2019-02-08] MEDS: INSULIN REGULAR, HUMAN 100 UNIT/1 ML 3ML VIAL SQ SCH ×2 (07:30→11:30)
[2019-02-08] MEDS ORDERED: PANTOPRAZOLE SOD 40 MG TABEC PO SCH (07:30)
[2019-02-08 07:48] VITALS: BP 135/64
[2019-02-08] MEDS: GEMFIBROZIL 600 MG TAB PO SCH (08:30)
[2019-02-08] MEDS: GLIPIZIDE 2.5 MG TABCR PO SCH (08:30)
[2019-02-08] MEDS: OYST-CAL-D 500MG TABLET PO SCH (08:30)
[2019-02-08] MEDS: GABAPENTIN 100 MG CAP PO SCH (08:30)
[2019-02-08] MEDS: ATENOLOL 50 MG TAB PO SCH (08:31)
--- NOTE | 2019-02-08 08:50 | NUR ---
PATIENT OFF THE FLOOR TO RADIOLOGY- PATIENT IS IN STABLE CONDITION WITH NO S/S OF RESPIRATORY DISTRESS. 02 AND TELEMETRY APPLIED.
--- NOTE | 2019-02-08 09:14 | NUR ---
PATIENT BACK ON THE UNIT- PATIENT IS IN STABLE CONDITION WITH NO S/S OF RESPIRATORY DISTRESS.02 AND TELEMETRY APPLIED. BED ALARM ON. DAUGHTER PRESENT IN ROOM. CALL LIGHT IS WITHIN REACH, PATIENT INSTRUCTED TO CALL FOR ASSISTANCE NEEDED.
[2019-02-08] MEDS ORDERED: ceftin PO (09:55)
[2019-02-08] MEDS ORDERED: PROTONIX40 MG/ML PO (09:55)
[2019-02-08] MEDS ORDERED: MAGNESIUM HYDROXIDE 30 ML UDC PO ONE (11:00)
[2019-02-08 12:00] VITALS: BP 121/62
[2019-02-08] MEDS ORDERED: METRONIDAZOLE 500 MG TAB PO SCH (12:00)
[2019-02-08] MEDS ORDERED: NEOMYCIN SULFATE 500 MG TAB PO SCH (12:00)
--- NOTE | 2019-02-08 12:51 | Diagnostic Imaging Report ---
Exam: Modified barium swallow History: Difficulty swallowing Comparison: None available Findings: Evaluation of the swallowing mechanism was performed in conjunction with Speech Pathology. Patient was administered different consistencies of barium impregnated liquids, semisolid's and pudding. Fluoroscopy time: 3.6 minutes Total dose: 12.7 mGy Impression: There is laryngeal penetration and makayla aspiration. Please see the full report provided by the Speech Pathologist. Signed by: Dr. Almas Mandujano DO on 02/08/2019 12:48 PM
--- NOTE | 2019-02-08 13:09 | NUR ---
CALL PLACED OUT TO DR. CARRASCO'S ON-CALL PHYSICIAN DR. MATHIS UPON PATIENT'S REQUEST- AWAITING CALLBACK.
--- NOTE | 2019-02-08 13:11 | Consultation ---
DATE OF CONSULTATION: 02/08/2019 HISTORY OF PRESENT ILLNESS: The patient is an 88-year-old female admitted to the hospital after syncopal episode, found to be anemic with history of black stools. She underwent a colonoscopy yesterday, which revealed a large polyp in the sigmoid colon, it could not be removed endoscopically. PAST MEDICAL HISTORY: Significant for atrial fibrillation, type 2 diabetes, hyperlipidemia, peripheral neuropathy. PAST SURGICAL HISTORY: She has had previous hysterectomy, appendectomy, and right total hip replacement, cholecystectomy. ALLERGIES: SHE HAS ALLERGY TO MEXILETINE. MEDICATIONS: Listed in the chart. FAMILY HISTORY: Noncontributory. SOCIAL HISTORY: The patient does not smoke cigarettes or drink alcohol. REVIEW OF SYSTEMS: Significant only for some nausea. She denies any fever. No weight loss. PHYSICAL EXAMINATION: GENERAL: The patient is awake and alert. VITAL SIGNS: Normal. HEENT: Reveals no scleral icterus. NECK: Has no masses. LUNGS: Equal breath sounds are clear. CARDIAC: Regular rhythm. There was no murmur. ABDOMEN: Soft. There is no tenderness. No mass. EXTREMITIES: Have no edema. NEUROLOGIC: Grossly intact. ASSESSMENT: An 88-year-old female with a large polyp in the sigmoid colon that could not be removed endoscopically. The patient probably best be treated with resection of the sigmoid colon, which will be done with laparoscopic-assisted technique and this was explained to the patient and her family. She is considering whether to have surgery. The procedure was explained including risks, benefits, and alternatives. They understand, they had the opportunity to ask questions. Thank you for asking me to see Ms. Garcia. MD FREDERICK Baker/WILMAR /[id number]
--- NOTE | 2019-02-08 14:44 | NUR ---
SENT CLINICALS TO [facility] TO RESUME SERVICE AND START SPEECH THERAPY. FAMILY IS ASKING FOR THE PURE WIC CATHETER TO TAKE HOME AND ASKING FOR AN ORDER.
--- NOTE | 2019-02-08 14:45 | NUR ---
[facility] FAX [phone] PHONE [phone]
--- NOTE | 2019-02-08 15:05 | NUR ---
CALL PLACED OUT TO DR. CHENG TO UPDATE HIM ON PATIENT'S SURGERY-AWAITING CALLBACK.
--- NOTE | 2019-02-08 15:06 | NUR ---
ADRIAN FREIRE N.P. IS AWARE OF PATIENT/PATIENT'S FAMILY MEMBERS DECISION OF NOT HAVING SURGERY. N.P. IS ALSO AWARE THE PATIENT AND FAMILY DO NOT WANT TO WAIT FOR GI ANYMORE AND WOULD LIKE TO BE DISCHARGED AND WILL F/U WITH GI. N.P. STATED OKAY TO DISCHARGE PATIENT.
--- NOTE | 2019-02-08 15:12 | NUR ---
RECEIVED CALLBACK FROM DR. CHENG- DR. CHENG IS AWARE PATIENT AND PATIENT'S FAMILY MEMBERS DO NOT WANT TO HAVE SURGERY AT THIS TIME. DR. CHENG STATED PATIENT SHOULD F/U WITH HIM IN A FEW WEEKS.
--- NOTE | 2019-02-08 16:17 | NUR ---
PATIENT DISCHARGE HOME- PATIENT OFF THE UNIT AT 1604 PER WHEELCHAIR ACCOMPANIED BY 2 RN'S TO THE FRONT LOBBY. PATIENT IN STABLE CONDITION WITH NO S/S OF RESPIRATORY DISTRESS. NO PAIN INDICATED. IV REMOVED WITH TIP INTACT. DISCHARGE TEACHING, INSTRUCTIONS, AND MEDICATIONS GIVEN TO THE PATIENT. ALL PERSONAL ITEMS TAKEN WITH THE PATIENT AND HER FAMILY MEMBERS.
--- NOTE | 2019-02-09 02:44 | Discharge Summary ---
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 Rule out AFib, Wenckebach AV block. Gastritis, hiatal hernia, gastric polyp, reflux, colon polyp, and severe diverticulosis. HISTORY: The patient has a history of AFib, type 2 diabetes, hyperlipidemia, sundowner, neuropathy, and seasonal allergies. SURGICAL HISTORY: Hysterectomy, appendectomy, cholecystectomy, tooth extractions, and right total hip replacement. FAMILY HISTORY: The patient's daughter has diabetes. The patient's sister and mom have cancer. The patient's sister had a stroke. HOSPITAL COURSE: An 88-year-old female, admitted to the ER by family after experiencing 2 syncopal episodes while sitting on the bedside today. The 2nd episode was followed by shaking. Per the son-in-law, the patient also had intermittent black stools for over 3 months. The patient complains of nausea and epigastric abdominal pain that began today. On admission, the patient's hemoglobin was 3.6. Five units of PRBCs were ordered. Protonix started. GI consulted. The patient was on Xarelto secondary to atrial fibrillation, which was held and cleared by Cardiology. Chest x-ray was negative. CT of the brain was negative. Blood culture was negative. Urine culture came back positive for E coli. The patient received Rocephin in the hospital, which was changed to Ceftin at time of discharge. She then had an EGD that showed gastritis, hiatal hernia, gastric polyp, and reflux. The patient then chose to do a colonoscopy, which showed severe diverticulosis and colon polyp. Per GI recommendation, Surgery was consulted due to the size of the polyp. After Surgery spoke with the patient and the patient's family, they decided not to do surgery. The patient will discharge home with Protonix daily and 3 more days of Ceftin. She will resume all other medicines except her Xarelto. Per Cardiology, the patient does not need Xarelto as she no longer has AFib. The patient and family understand discharge instructions and agrees to plan. Vital signs stable, patient afebrile. Dictated by Yvrose Souza, E COMMERCE ANALYST MD VICKI Pretty/MODL /[id number]
== END 2019-02-08 16:04 | disposition home or self-care (01) | DRG 378 ==
LOC: ER 04:31 → ERHOLD 05:48 → ICU 19:00 → MED/SURG3 02-04 21:39
PROVIDERS: ADMIT Internal Medicine; ATTEND Internal Medicine
PROC: 30233N1 Transfusion of Nonautologous Red Blood Cells into Peripheral Vein, Percutaneous Approach (ICD-10-PCS; principal; 2019-02-03)
PROC: 0DD78ZX Extraction of Stomach, Pylorus, Via Natural or Artificial Opening Endoscopic, Diagnostic (ICD-10-PCS; 2019-02-03)
PROC: 0DD68ZX Extraction of Stomach, Via Natural or Artificial Opening Endoscopic, Diagnostic (ICD-10-PCS; 2019-02-03)
PROC: 0DD38ZX Extraction of Lower Esophagus, Via Natural or Artificial Opening Endoscopic, Diagnostic (ICD-10-PCS; 2019-02-03)
DX: K92.2 Gastrointestinal hemorrhage, unspecified (principal); D62 Acute posthemorrhagic anemia; F05 Delirium due to known physiological condition; N39.0 Urinary tract infection, site not specified; I12.9 Hypertensive chronic kidney disease with stage 1 through stage 4 chronic kidney disease, or unspecified chronic kidney disease; E11.22 Type 2 diabetes mellitus with diabetic chronic kidney disease; N18.3 Chronic kidney disease, stage 3 (moderate); Z79.4 Long term (current) use of insulin; E78.5 Hyperlipidemia, unspecified; K57.31 Diverticulosis of large intestine without perforation or abscess with bleeding; E11.40 Type 2 diabetes mellitus with diabetic neuropathy, unspecified; I48.91 Unspecified atrial fibrillation; B96.20 Unspecified Escherichia coli [E. coli] as the cause of diseases classified elsewhere; K31.7 Polyp of stomach and duodenum; K63.5 Polyp of colon; K57.10 Diverticulosis of small intestine without perforation or abscess without bleeding; K57.30 Diverticulosis of large intestine without perforation or abscess without bleeding; K64.8 Other hemorrhoids; K44.9 Diaphragmatic hernia without obstruction or gangrene; Z79.01 Long term (current) use of anticoagulants
CPT/HCPCS: 36415; 43239; 45378; 70450; 71045; 74230; 80048; 80053; 81001; 82550; 82553; 82607; 82728; 82746; 82948; 83036; 83540; 83690; 83735; 83880; 84439; 84443; 84466; 84484; 85014; 85018; 85025; 85610; 85730; 86850; 86900; 86920; 87040; 87086; 87186; 88305; 88312; 93005; 96372; 97139; 99285; J0610; J0692; J1940; J2001; J7050; P9016

== ENCOUNTER 2019-04-16 14:13 | Inpatient (IN) | payer MEDICARE, OTHER ==
[~2019-04-16] VITALS: Ht 157.5 cm; Wt 60.3 kg
[~2019-04-16 14:13] MED LIST: ATENOLOL50 MG PO; CLONAZEPAM0.5 MG PO; GABAPENTIN100 MG PO; GEMFIBROZIL600 MG PO; GLIPIZIDE XL2.5 MG PO; MONTELUKAST SOD10 MG PO; PROTONIX40 MG/ML PO; QUETIAPINE FUMA25 MG PO; XARELTO15 MG PO; ceftin PO
--- OUTSIDE RECORDS SUMMARY | 2019-04-16 14:16 | XMS REPORT ---
Author Author Oren Ramos Organization [employer] Address Unknown Phone Unavailable Care Team Providers Care Lab Systems Analyst Name Role Phone Oren Ramos CP Unavailable Allergies No Known Allergies Problems Problem Type Condition Code Onset Dates Condition Status Problem Knee osteoarthritis M17.9 Active Problem Hip pain M25.559 Active Problem Leg pain M79.606 Active Medications No Known Medications Results No Known Results Summary Purpose eClinicalWorks Submission
--- OUTSIDE RECORDS SUMMARY | 2019-04-16 14:16 | XMS REPORT | Continuity of Care Document ---
Author Author [facility] [place] [facility] Address Unknown Phone Unavailable Problems Problem Status Onset Date Classification Date Reported Comments Source Knee osteoarthritis Active Problem 04/11/2019 Karthikeyan Delucaer Hip pain Active Problem 04/11/2019 Karthikeyan Ramos Leg pain Active Problem 04/11/2019 Karthikeyan Ramos Medications Medication Details Route Status [...] Reaction Info Not Available Adverse Reaction Active 02/12/2019 Karthikeyan Delucaer Immunizations Immunization Date Given Site Status Last Updated Comments Source Results Order Name Results Value Reference Range Date Interpretation Comments Source Vital Signs Vital Sign Value Date Comments Source Systolic (mm Hg) 101 02/12/2019 Karthikeyan Ramos Temperature Oral (F) 99.0 F 02/12/2019 Karthikeyan Ramos Heart Rate 81 02/12/2019 Karthikeyancarleen Ramos Diastolic (mm Hg) 75 02/12/2019 Karthikeyan Ramos Weight 124.0 01/17/2019 Karthikeyan Ramos Height 62 01/17/2019 Karthikeyan Ramos Temperature Oral (F) 98.6 F 01/17/2019 Karthikeyan Ramos Heart Rate 62 01/17/2019 Karthikeyan Ramos Diastolic (mm Hg) 64 01/17/2019 Karthikeyan Ramos Systolic (mm Hg) 124 01/17/2019 Karthikeyancarleen Ramos Encounters Location Location Details Encounter Type Encounter Number Reason For Visit Attending Provider ADM Date DC Date Status Source Procedures Procedure Code Date Perfomer Comments Source
--- OUTSIDE RECORDS SUMMARY | 2019-04-16 14:16 | XMS REPORT ---
Author Author Oren Ramos Organization [employer] Address Unknown Phone Unavailable Care Team Providers Care Cashier Payments Received Name Role Phone Oren Ramos CP Unavailable Allergies No Known Allergies Problems Problem Type Condition Code Onset Dates Condition Status Problem Knee osteoarthritis M17.9 Active Problem Hip pain M25.559 Active Problem Leg pain M79.606 Active Medications No Known Medications Results No Known Results Summary Purpose [employer]Clinical[employer] Submission
--- OUTSIDE RECORDS SUMMARY | 2019-04-16 14:16 | XMS REPORT ---
Author Author Oren Ramos Organization [employer] Address Unknown Phone Unavailable Care Team Providers Care Staff Nurse Name Role Phone Oren Ramos CP Unavailable Allergies No Known Allergies Problems Problem Type Condition Code Onset Dates Condition Status Problem Knee osteoarthritis M17.9 Active Problem Hip pain M25.559 Active Problem Leg pain M79.606 Active Medications No Known Medications Results No Known Results Summary Purpose eClinicalWorks Submission
--- OUTSIDE RECORDS SUMMARY | 2019-04-16 14:16 | XMS REPORT ---
Author Author Harley Bray [facility] e[employer] Address Unknown Phone Unavailable Care Team Providers Care Wood Milling Machine Tender Name Role Phone Harley Bray Unavailable Allergies, Adverse Reactions, Alerts Substance Reaction Event Type N.K.D.A. Info Not Available Non Drug Allergy Problems Problem Type Condition Code Onset Dates Condition Status Problem Knee osteoarthritis M17.9 Active Problem Hip pain M25.559 Active Problem Leg pain M79.606 Active Assessment Knee osteoarthritis M17.9 Active Medications Medication Code System Code Instructions Start Date End Date Status Dosage Xarelto [facility] 36261987558 15 MG Orally Once a day Active 1 tablet with food Meclizine HCl [facility] 26904861145 25 MG Orally Once a day Active 1 tablet as needed Gabapentin [facility] 99264812024 100 MG Orally qhs January 17, 2019 Active 1 capsule Gemfibrozil [facility] 32494593162 600 MG Orally Twice a day Active 1 tablet Prilosec [facility] [address]-87 20 MG Orally Once a day Active 1 capsule Quetiapine Fumarate [facility] 72245867678 25 MG Orally Once a day Active 1 tablet Clonazepam [facility] 01049342150 0.5 MG Orally Once a day Active 1 tablet at bedtime Synvisc One [facility] 77127651140 48 MG/6ML Intra-articular January 17, 2019 Active bl knees Atenolol ND 72196669808 25 MG Orally Once a day Active 1 tablet Vital Signs Date/Time: February 12, 2019 Blood Pressure Systolic 101 mm Hg Weight pt unable lbs Height pt unable in Temperature 99.0 F Cardiac Monitoring Heart Rate 81 /min Blood Pressure Diastolic 75 mm Hg Results No Known Results Summary Purpose eClinicalWorks Submission
[2019-04-16] MEDS ORDERED: SODIUM CHLORIDE 0.9% 1000ML 1,000 ML IV STA (14:33)
[2019-04-16] MEDS ORDERED: CEFEPIME 2 GM/NS 0.9% 100 ML 100 ML IV SCH (15:00)
[2019-04-16] MEDS ORDERED: VANCOMYCIN 1GM/NS 250 ML 250 ML IV ONE (15:00)
--- NOTE | 2019-04-16 15:21 | Diagnostic Imaging Report ---
EXAMINATION: CHEST SINGLE (PORTABLE) INDICATION: Fever, altered mental status. COMPARISON: Chest radiograph 02/05/2019. FINDINGS: TUBES and LINES: None. LUNGS: Lungs are well inflated. There is no evidence of pneumonia or pulmonary edema. Opacity at the right lung apex likely represents asymmetric neck soft tissue secondary to rotation. PLEURA: No pleural effusion or pneumothorax. HEART AND MEDIASTINUM: The cardiomediastinal silhouette is unremarkable. BONES AND SOFT TISSUES: No acute osseous abnormality. UPPER ABDOMEN: No free air under the diaphragm. IMPRESSION: No evidence of pneumonia. Signed by: Dr. Gus Knight MD on 04/16/2019 3:18 PM
[2019-04-16 16:29] LABS: BILIRUBIN,URINE NEGATIVE (NEGATIVE); CLARITY,URINE SL CLOUDY (CLEAR); COLOR,URINE YELLOW (YELLOW); KETONES,URINE NEGATIVE (NEGATIVE); LEUKOCYTE ESTERASE ,URINE LARGE (NEGATIVE); NITRITE,URINE POSITIVE (NEGATIVE); PROTEIN,URINE DIPSTICK NEGATIVE (NEGATIVE); URINE UROBILINOGEN 0.2 mg/dL (0.2 - 1)
[2019-04-16 16:31] LABS: BASOPHILS # (AUTO) 0.1 (0.0-0.1); BASOPHILS % 0.7 % (0.0-1.0); EOSINOPHILS # (AUTO) 0.2 (0.0-0.4); EOSINOPHILS % 1.6 % (0.0-6.0); HEMATOCRIT 34.3 % (34.2-44.1); HEMOGLOBIN 11.5 g/dL (12.0-16.0); LYMPHOCYTES # (AUTO) 1.1 (1.0-3.2); LYMPHOCYTES % 11.9 % (18.0-39.1); MEAN CORPUSCULAR HEMOGLOBIN 30.5 pg (28-32); MEAN CORPUSCULAR HGB CONC 33.5 g/dL (31-35); MONOCYTES # (AUTO) 1.1 (0.2-0.8); MONOCYTES % 11.8 % (4.4-11.3); NEUTROPHILS # (AUTO) 6.7 (2.1-6.9); NEUTROPHILS % 73.6 % (38.7-80.0); PLATELET COUNT 335 x10e3/uL (140-360); RED BLOOD COUNT 3.77 x10e6/uL (3.6-5.1); RED CELL DISTRIBUTION WIDTH 16.8 % (11.7-14.4)
[2019-04-16 16:35] LABS: STREPTOCOCCUS GRP A ANTIGEN NEGATIVE (NEGATIVE)
[2019-04-16 16:38] LABS: PROTHROMBIN TIME 13.7 seconds (11.9-14.5)
[2019-04-16 16:39] LABS: PARTIAL THROMBOPLASTIN TIME 33.9 seconds (23.8-35.5)
[2019-04-16 16:42] LABS: BACTERIA,URINE MANY /HPF; EPITHELIAL CELLS,URINE MODERATE /LPF; WBC,URINE (MAN) >50 /HPF (0-5)
[2019-04-16 16:44] LABS: INFLUENZAE A&B ANTIGEN (RAPID) NEGATIVE (NEGATIVE)
[2019-04-16 16:48] LABS: ALBUMIN 2.7 g/dL (3.5-5.0); ALBUMIN/GLOBULIN RATIO 0.6 (0.8-2.0); CREATININE, SERUM 1.34 mg/dL (0.57-1.11); MAGNESIUM 1.7 MG/DL (1.3-2.1)
[2019-04-16 16:54] LABS: CREATINE KINASE MB 0.4 ng/mL (0-5.0)
[2019-04-16 17:02] LABS: B-TYPE NATRIURETIC PEPTIDE2 158.2 pg/mL (0-100)
--- NOTE | 2019-04-16 17:27 | Diagnostic Imaging Report ---
ADDENDUM #1 I have reviewed the images and agree with findings in the preliminary report. Signed by: Dr. Odette Mario M.D. on 04/16/2019 9:20 PM ORIGINAL REPORT Exam: Noncontrast Head CT History: Altered mental status, 88-year-old female Comparison studies: Head CT dated 02/03/2019 Technique: Axial images were obtained from the skull base to the vertex. Coronal and sagittal reconstructions obtained from the axial data. Dose modulation, iterative reconstruction, and/or weight based adjustment of the mA/kV was utilized to reduce the radiation dose to as low as reasonably achievable. Findings: Scalp/skull: No abnormalities. No fractures, blastic or lytic lesions. Extra-axial spaces: No masses. No fluid collections. Brain sulci: Mildly prominent. Ventricles: Normal in size and configuration. No hydrocephalus. Parenchyma: Mild scattered hypodensities in the supratentorial white matter are small vessel ischemic changes.. No masses, hemorrhage, acute or chronic cortical vascular insults. Sellar/suprasellar region: No abnormalities Craniocervical junction: Patent foramen magnum. No Chiari one malformation. IMPRESSION: No acute abnormalities. Chronic findings: Stable mild scattered white matter microvascular ischemic changes. Mild generalized volume loss. Report dictated by neuroradiology fellow. Final read to follow. Signed by: Ti Moses MD on 04/16/2019 5:24 PM
--- NOTE | 2019-04-16 17:47 | Diagnostic Imaging Report ---
EXAM: CT ABDOMEN/PELVIS WO DATE: 04/16/2019 12:00 AM INDICATION: Altered mental status, UTI, 88-year-old female COMPARISON: None TECHNIQUE: The abdomen and pelvis were scanned using a multidetector helical scanner. Coronal and sagittal reformations were obtained. CT low dose techniques were utilized, as applicable. IV Contrast: 0 ml Isovue 300/370 FINDINGS: Lack of IV contrast decreases sensitivity in evaluating abdominal and pelvic organs. LOWER THORAX: Right lower lobe atelectasis/scarring, particularly on the right. Large hiatal hernia containing nearly the entire stomach. LIVER/BILIARY: Scattered small hepatic calcifications likely from prior granulomatous disease. Cholecystectomy clip. Small hepatic cyst in the inferior right hepatic lobe.. Patulous extra hepatic bile duct, common after cholecystectomy. SPLEEN: Unremarkable PANCREAS: Unremarkable ADRENALS: No nodules KIDNEYS: Mildly atrophic, no stones. No hydronephrosis. GI TRACT: No wall thickening or evidence of obstruction. Extensive colonic diverticulosis. Right hip arthroplasty limits evaluation in the low pelvis including the sigmoid colon, rectum, and and distal cecum. VESSELS: Atherosclerotic calcification PERITONEUM/RETROPERITONEUM: No free air or fluid LYMPH NODES: No lymphadenopathy REPRODUCTIVE ORGANS/BLADDER: Decompressed urinary bladder, not visualized otherwise. SOFT TISSUES: Scattered soft tissue calcifications likely injection granulomas in the low posterior back. BONES: No suspicious bone lesions. Mild superior plate T11 deformity. Right total hip arthroplasty. IMPRESSION: Large hiatal hernia and near-total intrathoracic stomach. Extensive colonic diverticulosis without evidence of diverticulitis, although evaluation is somewhat limited due to streak artifact from right total hip arthroplasty. Age-indeterminate mild superior endplate T11 compression deformity. Signed by: Ti Moses MD on 04/16/2019 5:43 PM
[2019-04-16] MEDS ORDERED: SODIUM CHLORIDE 0.9% 1000ML 1,000 ML IV ONE (18:30)
[2019-04-16] MEDS ORDERED: ONDANSETRON HCL INJ 2MG/ML 2ML 2 MG/ML VIAL IV PRN (18:30)
[2019-04-16] MEDS ORDERED: MORPHINE SULFATE 2 MG/ML SYR 1ML IV PRN (19:15)
[2019-04-16] MEDS ORDERED: MONTELUKAST SODIUM 10 MG TAB PO PRN (19:45)
[2019-04-16] MEDS ORDERED: ACETAMINOPHEN 325 MG TAB PO PRN (19:45)
[2019-04-16] MEDS ORDERED: MORPHINE SULFATE INJ 4 MG/ML INJ 1ML ONE (20:05)
[2019-04-16] MEDS: MORPHINE SULFATE INJ 4 MG/ML INJ 1ML IV PRN (20:07)
[2019-04-16] MEDS: SODIUM CHLORIDE 0.9% 1000ML 1,000 ML IV SCH (20:53)
[2019-04-16 22:11] VITALS: BP 129/57
--- NOTE | 2019-04-16 22:20 | NUR ---
Patient received via stretcher from ER accompanied by family members. Patient is AAO x 1. Admission history obtained. Initial Physical assessment performed. Patient had no complaints of pain. No signs of respiratory distress. Purewick connected to low suction. IVF infusing at 50 cc/hr. Patient / family members oriented to room, call light and plan of care. Fall precautions implemented. Patient instructed to call for assistance when needed. Call light within reach.
[2019-04-16 23:00] VITALS: BP 129/57
[2019-04-17] VITALS (7 sets, daily range): BP systolic 100–143; BP diastolic 50–92
--- NOTE | 2019-04-17 01:03 | NUR ---
Blood specimen sent to lab for analysis of cardiac enzymes.
[2019-04-17 01:33] LABS: CREATINE KINASE MB 0.6 ng/mL (0-5.0)
[2019-04-17] MEDS ORDERED: CLONAZEPAM 0.5 MG TAB PO ONE (03:15)
--- NOTE | 2019-04-17 03:15 | NUR ---
Patient agitated and combative, screaming and trying to get out of bed. Shen Guzmán (BACTERIOLOGIST FOOD) notified. New orders received for medication and Consultation of Dr. Ayala.
[2019-04-17] MEDS ORDERED: QUETIAPINE FUMARATE 25 MG TAB PO ONE ×2 (03:28→03:30)
[2019-04-17] MEDS ORDERED: RISPERIDONE 1 MG TAB PO ONE (04:00)
[2019-04-17] MEDS ORDERED: HALOPERIDOL LACTATE 5 MG/ML VIAL IM ONE (04:00)
--- NOTE | 2019-04-17 04:15 | NUR ---
Patient refused administration of Seroquel 25 mg and Clonazepam 0.5 mg by mouth. Haldol 2 mg given IM.
[2019-04-17 05:05] LABS: BASOPHILS % 0.4 % (0.0-1.0); EOSINOPHILS # (AUTO) 0.2 (0.0-0.4); EOSINOPHILS % 2.1 % (0.0-6.0); HEMATOCRIT 31.9 % (34.2-44.1); HEMOGLOBIN 10.6 g/dL (12.0-16.0); LYMPHOCYTES % 10.5 % (18.0-39.1); MEAN CORPUSCULAR HEMOGLOBIN 30.5 pg (28-32); MEAN CORPUSCULAR HGB CONC 33.2 g/dL (31-35); MEAN CORPUSCULAR VOLUME 91.7 fL (81-99); NEUTROPHILS # (AUTO) 6.8 (2.1-6.9); NEUTROPHILS % 75.4 % (38.7-80.0); PLATELET COUNT 322 x10e3/uL (140-360); RED BLOOD COUNT 3.48 x10e6/uL (3.6-5.1); RED CELL DISTRIBUTION WIDTH 16.9 % (11.7-14.4)
[2019-04-17 05:26] LABS: ALBUMIN 2.6 g/dL (3.5-5.0); ALBUMIN/GLOBULIN RATIO 0.6 (0.8-2.0); ANION GAP 13.8 mmol/L (8-16); CALCIUM 9.5 mg/dL (8.4-10.2); CREATININE, SERUM 1.09 mg/dL (0.57-1.11); POTASSIUM 3.8 mmol/L (3.5-5.1)
--- NOTE | 2019-04-17 05:40 | NUR ---
Dr. Corrine Ayala paged regarding "Consult" for patient. Awaiting call back.
[2019-04-17 05:51] LABS: FREE T4 (FREE THYROXINE) 0.74 ng/dL (0.9-1.8); THYROID STIMULATING HORMONE 0.939 uIU/mL (0.350-4.940)
[2019-04-17] MEDS: CEFEPIME 2 GM/NS 0.9% 100 ML 100 ML IV SCH ×2 (06:00→17:48)
--- NOTE | 2019-04-17 06:20 | NUR ---
Dr. Ayala called stating he would see patient in the morning.
--- NOTE | 2019-04-17 07:00 | NUR ---
BEDSIDE SHIFT REPORT RECEIVED FROM CLASS A LINEMAN RN. PT DENIES NEEDS AT THIS TIME.
--- NOTE | 2019-04-17 07:05 | NUR ---
Patient resting comfortably. Shift report given to oncoming nurse
[2019-04-17] MEDS ORDERED: GLIPIZIDE 2.5 MG TABCR PO SCH (08:00)
[2019-04-17] MEDS ORDERED: DOCUSATE SODIUM 100 MG CAP PO PRN (08:15)
[2019-04-17] MEDS ORDERED: CLONAZEPAM 0.5 MG TAB PO SCH (09:00)
[2019-04-17 09:10] LABS: CREATINE KINASE MB 1.5 ng/mL (0-5.0)
[2019-04-17] MEDS ORDERED: LORAZEPAM INJ 2 MG/ML VIAL IV PRN (09:30)
--- NOTE | 2019-04-17 09:30 | NUR ---
SPEECH PATHOLOGIST RECOMMEND NPO. MAXI TO GIVE MEDS CRUSHED IN APPLE SAUCE PER ADRIAN FREIRE.
[2019-04-17] MEDS: ATENOLOL 50 MG TAB PO SCH (09:50)
[2019-04-17] MEDS: GABAPENTIN 100 MG CAP PO SCH (09:50)
[2019-04-17] MEDS: FAMOTIDINE 20 MG TAB PO SCH ×2 (09:50→17:29)
[2019-04-17] MEDS: QUETIAPINE FUMARATE 25 MG TAB PO SCH ×2 (09:50→21:56)
[2019-04-17] MEDS: CLONAZEPAM 0.5 MG TAB PO SCH ×2 (09:50→21:56)
[2019-04-17] MEDS: GEMFIBROZIL 600 MG TAB PO SCH ×2 (09:50→17:29)
--- NOTE | 2019-04-17 10:30 | NUR ---
PER ADRIAN FREIRE, DISCONTINUED GLIMEPIRIDE AND STARTED HUMALOG SLIDING SCALE.
[2019-04-17] MEDS ORDERED: DEXTROSE 50% SYRINGE 50 ML IV PRN (10:45)
--- NOTE | 2019-04-17 10:51 | NUR ---
WOUND CARE CONSULTATION - INITIAL EVALUATION Patient admitted from home to ER for fever, chills, weakness, and decreased PO intake. DX: dehydration, dementia, pyelonephritis, renal insufficiency. LABS: WBC9.07 HGB10.6 HCT31.9 NEUT%75.4 BTE857 HBA1C5.7 Wound Care Consulted for Redness to Gluteal Areas PATIENT VISIT: Patient Calm in bed, follows direction. Needs 1 person assist to turn. Yong Score 12 Diapered - Liquid Stools No Pressure Ulcers Identified during visit. Mild redness to perineal & gluteal areas. Patient incontinent of bowel and bladder. IMPRESSION: Incontinence Related Dermatitis RECOMMENDATION: 1. Perirectal/ Gluteal Areas: - Wash with mild soap and water then pat dry thoroughly - Apply Phoenix cream q12H and PRN Soiling. 2. Turn and Reposition q2h using turning clock schedule 3. Maintain HOB no greater than 30 degrees as tolerated. 4. Bilateral Heel Protectors / Offload heels with pillows while in bed. 5. Alternating Pressure Air Mattress 6. Initiate Strict Pup Protocol. Thank you for consulting with Wound Care. Addendum: 04/17/19 at 1053 by Silverio Florian RN Amended: Links added.
[2019-04-17] MEDS: INSULIN LISPRO 100 UNIT/1 ML 3ML VIAL SQ SCH ×3 (11:30→21:00)
[2019-04-17] MEDS: ZINC OXIDE / BALSAM PERU 30 GM TUBE TOP SCH ×2 (14:00→23:00)
[2019-04-17] MEDS: SODIUM CHLORIDE 0.9% 1000ML 1,000 ML IV SCH (16:00)
--- NOTE | 2019-04-17 16:40 | NUR ---
PT DAUGHTER REGARDING PT DIET. INFORMED PT IS NOT SAFE TO SWALLOW PER SPEECH PATHOLOGIST AND ON NPO PER ADRIAN FREIRE NP.
[2019-04-17 18:04] LABS: CREATINE KINASE MB 1.5 ng/mL (0-5.0)
--- NOTE | 2019-04-17 18:41 | NUR ---
Nutrition Intervention Note RD Recommendation(s) for Physician: -NPO until bedside swallow is completed -If PO is feasible, rec to initiate ADA 1800 diet with Glucerna TID; texture per ENVIRONMENTAL DIRECTOR -If PO is not feasible, rec to initiate continuous TF with Glucerna 1.2 @10mL/hr, advance as tolerated, to goal rate of 60mL/hr (1728kcal, 86g protein, 1159mL water) -Check daily labs, gastric tolerance, weight Plan of Care: RD following, monitoring for tolerance and adequacy Nutrition reason for involvement: Nutrition Risk Trigger MST RD Assessment 04/17: 88 yo F, who was admitted from home to ER for fever, chills, weakness, and decreased PO intake. ENVIRONMENTAL DIRECTOR was consulted. Per ENVIRONMENTAL DIRECTOR, pt not appropriate for PO intake at this time with current level of alertness/lack of reflexive/volitional movement. Visited pt in the room. Unable to obtain any hx. No family on bedside. Will continue to monitor and follow. Principal Problems/Diagnoses: dehydration dementia, pyelonephritis, renal insufficiency PMH: HTN, DM, COPD, Afib, GERD, osteoarthritis GI: abdomen soft, non-tender, liquid stool 04/16 Skin: intact Labs: (04/17) Glucose 130 H Meds: pepcid Ht: 62in Wt:135lb BMI: 24.7kg/m2 IBW: 110lb Malnutrition Evaluation (04/17/2019) Unable to determine due to AMS Nutrition Prescription (Diet Order): NPO Estimated Nutritional Needs: Calories: 1525 1830kcal(25-30kcal/kg/d) Weight used: CBW Protein: 61 92g(1-1.5g/kg/d) Weight used: CBW Diet Adequacy: Not meeting calorie needs, Not meeting protein needs Diet Education Needs Assessment: Diet education indicated, but patient not appropriate for education at this time. Nutrition Care Level: mod Nutrition Diagnosis: Inadequate oral intake related to AMS as evidenced by NPO recommended by ENVIRONMENTAL DIRECTOR Goal: Patient will meet 75-100% of estimated needs by follow up Progress: N/A Interventions: modified diet, commercial beverage, Composition, Rate, Route, Recommended Modifications, Skill Development, Collaboration with other providers Monitoring/Evaluation: Total energy intake, Total protein intake, Formula/Solution, Modified diet, Liquid supplement, Weight change Signed: Jeane Umana MS, RD, LD
--- NOTE | 2019-04-17 19:00 | NUR ---
BEDSIDE SHIFT REPORT GIVEN TO STRUCTURAL TEST ENGINEER RN. PT DENIED FURTHER NEEDS.
--- NOTE | 2019-04-17 19:15 | NUR ---
Patient received asleep in bed. Arousable to tactile stimuli. No signs of pain or respiratory distress. Purewick in place. Fall precautions implemented. Call light within reach.
[2019-04-17] MEDS ORDERED: RISPERIDONE 1 MG TAB PO SCH (21:00)
[2019-04-17] MEDS: MORPHINE SULFATE INJ 4 MG/ML INJ 1ML IV PRN (23:03)
[2019-04-18] VITALS (9 sets, daily range): BP systolic 117–150; BP diastolic 58–86
[2019-04-18 05:06] LABS: BASOPHILS # (AUTO) 0.1 (0.0-0.1); BASOPHILS % 0.8 % (0.0-1.0); EOSINOPHILS # (AUTO) 0.1 (0.0-0.4); EOSINOPHILS % 1.4 % (0.0-6.0); HEMATOCRIT 31.1 % (34.2-44.1); HEMOGLOBIN 10.3 g/dL (12.0-16.0); LYMPHOCYTES % 11.6 % (18.0-39.1); MEAN CORPUSCULAR HEMOGLOBIN 30.7 pg (28-32); MEAN CORPUSCULAR HGB CONC 33.1 g/dL (31-35); MEAN CORPUSCULAR VOLUME 92.8 fL (81-99); NEUTROPHILS # (AUTO) 6.4 (2.1-6.9); NEUTROPHILS % 73.6 % (38.7-80.0); PLATELET COUNT 313 x10e3/uL (140-360); RED BLOOD COUNT 3.35 x10e6/uL (3.6-5.1); RED CELL DISTRIBUTION WIDTH 16.3 % (11.7-14.4)
[2019-04-18 05:31] LABS: CALCIUM 9.6 mg/dL (8.4-10.2); CREATININE, SERUM 0.95 mg/dL (0.57-1.11); MAGNESIUM 1.4 MG/DL (1.3-2.1)
[2019-04-18] MEDS: CEFEPIME 2 GM/NS 0.9% 100 ML 100 ML IV SCH ×2 (05:52→18:00)
--- NOTE | 2019-04-18 06:41 | NUR ---
Shift report given to oncoming nurse for continuity of care.
[2019-04-18] MEDS: FAMOTIDINE 20 MG TAB PO SCH ×3 (07:30→16:30)
[2019-04-18] MEDS: INSULIN LISPRO 100 UNIT/1 ML 3ML VIAL SQ SCH ×4 (07:30→21:00)
[2019-04-18] MEDS: QUETIAPINE FUMARATE 25 MG TAB PO SCH (09:00)
[2019-04-18] MEDS: ATENOLOL 50 MG TAB PO SCH (09:00)
[2019-04-18] MEDS: GABAPENTIN 100 MG CAP PO SCH (09:00)
[2019-04-18] MEDS: CLONAZEPAM 0.5 MG TAB PO SCH (09:00)
[2019-04-18] MEDS: GEMFIBROZIL 600 MG TAB PO SCH ×2 (09:00→17:00)
--- NOTE | 2019-04-18 09:00 | NUR ---
UNABLE TO ADMINISTER MEDICINES SINCE PT IS COMBATIVE AND SPITTING OUT MEDICINES IN APPLE SAUCE.
--- NOTE | 2019-04-18 10:00 | NUR ---
PT IS COMBATIVE WHILE DOING THE WOUND CARE DRESSING AND DIAPER CHANGE WITH TECH.
[2019-04-18] MEDS: ZINC OXIDE / BALSAM PERU 30 GM TUBE TOP SCH ×2 (11:16→23:45)
[2019-04-18] MEDS: SODIUM CHLORIDE 0.9% 1000ML 1,000 ML IV SCH ×2 (12:00→16:04)
--- NOTE | 2019-04-18 12:41 | NUR ---
PT IS NOT ORIENTED, LOOKED IN CHART MEDICAL POWER OF NEONATAL SPECIALIST IS FRANCISCA PIMENTEL [phone]
--- NOTE | 2019-04-18 12:45 | NUR ---
DAUGHTER ALSO HAS ANOTHER NUMBER [phone] PT IS TOTAL CARE.
--- NOTE | 2019-04-18 14:00 | NUR ---
INSULIN NOT GIVEN DUE TO NPO. MARILOU STOVALL NP
[2019-04-18] MEDS ORDERED: LORAZEPAM INJ 2 MG/ML VIAL IM PRN (14:15)
[2019-04-18] MEDS ORDERED: HALOPERIDOL LACTATE 5 MG/ML VIAL IM PRN (14:15)
[2019-04-18] MEDS ORDERED: QUETIAPINE FUMARATE 25 MG TAB PO PRN (14:15)
[2019-04-18] MEDS ORDERED: OLANZAPINE 5 MG TAB PO PRN (14:30)
[2019-04-18] MEDS ORDERED: ONDANSETRON HCL 4 MG ORAL DISINTEGRATING TAB PO PRN (14:45)
--- NOTE | 2019-04-18 14:50 | NUR ---
TALKING WITH FAMILY ALONG WITH GIANA GONZALEZ BLIND AIDE ABOUT THE PT SWALLOWING ISSUES. THEY USE [facility] [phone] (FELIX). FAMILY ALSO STATES THEY DON'T WANT ANY TUBES IN NOSE OR STOMACH.
[2019-04-18] MEDS ORDERED: QUETIAPINE FUMARATE 25 MG TAB PO SCH (15:00)
--- NOTE | 2019-04-18 17:00 | NUR ---
FAMILY VOICED CONCERN ABOUT PT IS SLEEPING. CHECKED VITAL SIGNS. TEMP 100.3, BP 122/58, RESP 20. PUPILS ARE REACTIVE. TELEMETRY CHECKED ON SR. FAMILY DENIED FURTHER NEEDS. BED IS AT LOWEST POSITION AND LOCKED. CALL LIGHT WITH IN REACH.
--- NOTE | 2019-04-18 17:53 | NUR ---
family at bedside concerned about patient being in heavy sleep. explained to family patient has received Ativan IV earlier today per MAR and it will cause drowsiness. upon assessment, patient withdraws to localized pain, MEKA, Resp even and unlabored. telemetry in place and currently SR @92bpm. BP WNL 122/58, 92bpm. call light within reach.
--- NOTE | 2019-04-18 18:15 | NUR ---
LEFT AC IV REMOVED DUE TO LEAKAGE. TIP INTACT. NO BLEEDING NOTED. DRESSING APPLIED. PT FAMILY AT BEDSIDE. DENIED FURTHER NEEDS.
--- NOTE | 2019-04-18 19:00 | NUR ---
BEDSIDE SHIFT REPORT GIVEN TO THE BANKING ASSISTANT RN.
--- NOTE | 2019-04-18 19:15 | NUR ---
Patient received asleep in bed. Responds to tactile stimuli. Family at bedside. No signs of pain, discomfort or respiratory distress. Call light within reach.
--- NOTE | 2019-04-18 20:26 | Consultation ---
DATE OF CONSULTATION: 04/18/2019 Psychiatric Consultation The patient was evaluated and events noted. REASON FOR CONSULTATION: To evaluate the patient's psychosis and dementia. HISTORY OF PRESENT ILLNESS: The patient is an 88-year-old female admitted to the hospital for dehydration. Psychiatric consultation is called to evaluate the patient's psychosis. Upon evaluation today, the patient is found to be in the room, she is sleeping, she is arousable but unable to answer any questions. She is not agitated at this time; however, she is getting p.r.n. IV medication, Ativan today at noon time. She is also getting morphine IV as well. As per nursing staff, the patient has been agitated in the morning and at night time. She has been refusing medications. She is refusing to eat. However, it appears that the patient is getting Risperdal last night and the Seroquel and Klonopin this morning. As per note, the patient was admitted from home to the ER for fever, chills, and weakness with decreased p.o. intake. PAST MEDICAL HISTORY: Includes hypertension, diabetes, COPD, AFib, GERD, and osteoarthritis. She also has a history of dementia, pyelonephritis, and renal insufficiency. PSYCHIATRIC HISTORY: The patient has history of dementia as per record. She appears to be taking antipsychotic medications, Risperdal as well as Klonopin. Unknown if she drinks alcohol or use any drugs. FAMILY HISTORY: Unknown. SOCIAL HISTORY: The patient lives at home. MENTAL STATUS EXAM: The patient is elderly female. She is drowsy. She is unable to answer any question at this time due to her cognition. She is not combative or agitated. She is having psychomotor retardation. CURRENT MEDICATIONS: 1. Zinc oxide. 2. Lopid. 3. Atenolol. 4. Famotidine. 5. Cefepime. 6. Morphine p.r.n. IV. 7. Ondansetron. 8. Insulin. 9. Sodium chloride. 10. Klonopin 0.5 q.12. 11. Seroquel 25 mg p.o. q.12. 12. Ativan 0.5 mg IV q.6 hours p.r.n. 13. Dextrose. 14. Docusate. 15. Singulair. 16. Hydralazine. 17. Acetaminophen p.r.n. 18. Risperdal 1 mg p.o. at bedtime. 19. Neurontin 100 mg p.o. daily. CURRENT LABS: WBC 8.68, RBC 3.35, hemoglobin 10.3, hematocrit 31.1, and platelets 313. Sodium 135, potassium 4, chloride 107, CO2 17, BUN 17, and creatinine 0.95. ASSESSMENT: 1. Unspecified psychosis. 2. Unspecified dementia with behavior disturbances. PLAN: 1. Discontinue risperidone 1 mg p.o. at bedtime. 2. Discontinue Klonopin 0.5 mg p.o. q.12. 3. Discontinue Neurontin 100 mg p.o. daily. 4. Change Ativan 0.5 mg IV q.6 hours p.r.n. to 0.5 mg IM q.6 hours p.r.n. 5. Add Haldol 2 mg IM q.6 hours p.r.n. 6. Add Depakote Sprinkle 125 mg p.o. q.12. 7. Add Zyprexa 2.5 mg p.o. q.12. 8. Add Zyprexa 2.5 mg p.o. q.6 hours p.r.n. 9. Monitor for agitation. Thank you for this consultation. We will monitor the patient with you during her hospital stay. Dictated by Lenka Zuñiga PA-C Rohini Ayala MD QTV/MODL /[id number]
[2019-04-18] MEDS: OLANZAPINE 5 MG TAB PO SCH (21:00)
[2019-04-18] MEDS: DIVALPROEX SODIUM 125 MG TABDR...ER PO SCH (21:00)
[2019-04-18] MEDS ORDERED: DIVALPROEX SODIUM 250 MG TAB...DR PO SCH (21:00)
--- NOTE | 2019-04-18 22:05 | NUR ---
Medication scheduled for 2100 could not be administered. Reason: Sedation. Patient is still asleep. Responds to tactile stimuli and occasionally opens her eyes. Will continue to monitor.
--- NOTE | 2019-04-19 02:45 | NUR ---
Patient repositioned. Patient opened her eyes, taking her covers off, and immediately drifted back to sleep. Will continue to monitor.
[2019-04-19 04:05] VITALS: BP 124/60
[2019-04-19] MEDS: CEFEPIME 2 GM/NS 0.9% 100 ML 100 ML IV SCH ×2 (05:54→17:08)
--- NOTE | 2019-04-19 06:43 | NUR ---
Patient resting comfortably. Awake but not alert to time and place. Still appears sleepy. Vital signs WNL. Shift report given to oncoming nurse regarding patient's health status.
--- NOTE | 2019-04-19 07:10 | NUR ---
pt asleep resp even and unlabored at this time no distress noted, pt arousal to touch, call light in reach.
[2019-04-19] MEDS: FAMOTIDINE 20 MG TAB PO SCH ×2 (07:30→17:08)
[2019-04-19] MEDS: INSULIN LISPRO 100 UNIT/1 ML 3ML VIAL SQ SCH ×4 (07:30→21:00)
[2019-04-19 07:34] VITALS: BP 143/63
[2019-04-19] MEDS: GEMFIBROZIL 600 MG TAB PO SCH ×2 (09:00→17:08)
[2019-04-19] MEDS: OLANZAPINE 5 MG TAB PO SCH (09:00)
--- NOTE | 2019-04-19 10:10 | NUR ---
pt off unit for swallow test.
[2019-04-19 11:34] VITALS: BP 145/72
--- NOTE | 2019-04-19 12:10 | NUR ---
pt returned to unit.
[2019-04-19] MEDS: ZINC OXIDE / BALSAM PERU 30 GM TUBE TOP SCH (12:57)
[2019-04-19] MEDS: ATENOLOL 50 MG TAB PO SCH (13:02)
[2019-04-19] MEDS: DIVALPROEX SODIUM 125 MG TABDR...ER PO SCH ×2 (13:02→21:00)
[2019-04-19 15:55] VITALS: BP 170/73
--- NOTE | 2019-04-19 16:22 | Diagnostic Imaging Report ---
PROCEDURE: X-RAY MODIFIED BARIUM SWALLOW COMPARISON: Modified barium swallow 02/08/2019. INDICATION: History of aspiration, failed prior swallow evaluation. Radiation Details: Fluoroscopy time: 2.8 minutes. Cumulative dose: 9 mGy DISCUSSION: Fluoroscopic examination was performed in conjunction with speech pathology during swallowing a variety of thin and thick liquid consistencies. Provided images demonstrate laryngeal penetration. There is intermittent minimal aspiration with thin liquids. There is moderate vallecular and piriform sinus residue. CONCLUSION: Modified barium swallow demonstrating laryngeal penetration with minimal aspiration. Please refer to the speech pathology report for further details. Signed by: Dr. Gus Knight MD on 04/19/2019 4:19 PM
[2019-04-19] MEDS: HYDRALAZINE HCL 20 MG/ML VIAL IV PRN (17:15)
--- NOTE | 2019-04-19 18:34 | Progress Note ---
DATE: 04/19/2019 Psychiatric Progress Note SUBJECTIVE: The patient is evaluated and events noted. The patient is in the room with family members. She is alert, awake. She is calm and cooperative. She is getting Depakote Sprinkle twice a day. She has not been getting Zyprexa schedule, but she has been calm, cooperative, not getting any p.r.n. medication. She is eating as per family members. She is not at baseline yet, but is getting there as per them. She is improving significantly. She is not agitated at this time. As per nursing staff, the patient is intermittently restless, but not combative. She has not needed any medication. ASSESSMENT: 1. Unspecified psychosis. 2. Unspecified dementia with behavior disturbances. PLAN: 1. Plan is to increase Depakote Sprinkle to 125 mg p.o. three times a day. 2. Discontinue Zyprexa schedule. 3. Continue Zyprexa 2.5 mg p.o. q.6 hours p.r.n. 4. Continue Ativan p.r.n. IM. 5. Continue Haldol p.r.n. IM. 6. Continue Zyprexa p.r.n. p.o. 7. Monitor for agitation. Dictated by Lenka Zuñiga PA-C Rohini Ayala MD QTV/MODL /[id number]
[2019-04-19] MEDS ORDERED: MAGNESIUM SULFATE 2GM/50ML 50 ML IV ONE (18:45)
--- NOTE | 2019-04-19 19:21 | NUR ---
report given to to oncoming nurse, for continued care.
[2019-04-19 19:59] VITALS: BP 136/62
--- NOTE | 2019-04-19 21:53 | NUR ---
PT REFUSED HER NIGHT MEDICATION PT STATED "I DONT WANT IT,I'M NOT GOING TO TAKE IT".NO S/S OF DISTRESS NOTED.RESPIRATIONS EVEN/NON LABORED.BED IN LOWEST/LOCKED POSITION.BED ALARM ACTIVATED.WILL CONTINUE TO MONITOR.
[2019-04-19 23:40] VITALS: BP 182/77
[2019-04-20] MEDS: ZINC OXIDE / BALSAM PERU 30 GM TUBE TOP SCH ×2 (00:13→09:30)
[2019-04-20 00:55] VITALS: BP 136/70
[2019-04-20] MEDS: SODIUM CHLORIDE 0.9% 1000ML 1,000 ML IV SCH (03:04)
[2019-04-20] MEDS: HYDRALAZINE HCL 20 MG/ML VIAL IV PRN (03:55)
[2019-04-20 04:17] VITALS: BP 165/75
[2019-04-20 04:42] LABS: BASOPHILS # (AUTO) 0.1 (0.0-0.1); BASOPHILS % 0.8 % (0.0-1.0); EOSINOPHILS # (AUTO) 0.3 (0.0-0.4); EOSINOPHILS % 3.7 % (0.0-6.0); HEMATOCRIT 29.3 % (34.2-44.1); HEMOGLOBIN 10.2 g/dL (12.0-16.0); LYMPHOCYTES # (AUTO) 0.9 (1.0-3.2); LYMPHOCYTES % 11.2 % (18.0-39.1); MEAN CORPUSCULAR HEMOGLOBIN 30.4 pg (28-32); MEAN CORPUSCULAR HGB CONC 34.8 g/dL (31-35); MEAN CORPUSCULAR VOLUME 87.5 fL (81-99); MONOCYTES # (AUTO) 0.8 (0.2-0.8); MONOCYTES % 10.2 % (4.4-11.3); NEUTROPHILS # (AUTO) 5.8 (2.1-6.9); NEUTROPHILS % 73.6 % (38.7-80.0); PLATELET COUNT 353 x10e3/uL (140-360); RED BLOOD COUNT 3.35 x10e6/uL (3.6-5.1); RED CELL DISTRIBUTION WIDTH 15.9 % (11.7-14.4)
[2019-04-20 05:01] LABS: ANION GAP 14.1 mmol/L (8-16); BLOOD UREA NITROGEN 20 mg/dL (7-26); BUN/CREATININE RATIO 24 (6-25); CALCIUM 9.3 mg/dL (8.4-10.2); CARBON DIOXIDE 17 mmol/L (22-29); CHLORIDE 110 mmol/L (98-107); CREATININE, SERUM 0.84 mg/dL (0.57-1.11); EST GLOMERULAR FILTRATION RATE > 60 ML/MIN (60-); GLUCOSE 189 mg/dL (74-118); MAGNESIUM 2.1 MG/DL (1.3-2.1); PHOSPHORUS 1.8 MG/DL (2.3-4.7); POTASSIUM 3.1 mmol/L (3.5-5.1); SODIUM 138 mmol/L (136-145)
[2019-04-20] MEDS: CEFEPIME 2 GM/NS 0.9% 100 ML 100 ML IV SCH (06:00)
--- NOTE | 2019-04-20 07:00 | NUR ---
RECEIVED AM REPORT FROM RN. PT IS AWAKE LYING IN BED, NO S/S OF DISTRESS. CALL LIGHT WITHIN REACH, SIDE RAILS UP, BED ALARM ON, BED IN LOWEST POSITION.
[2019-04-20 08:00] VITALS: BP_SYST 107; BP_SYST 126; BP_DIAS 53; BP_DIAS 60
[2019-04-20 08:45] VITALS: BP 126/60
[2019-04-20] MEDS: FAMOTIDINE 20 MG TAB PO SCH ×2 (08:45→17:00)
[2019-04-20] MEDS: DIVALPROEX SODIUM 125 MG TABDR...ER PO SCH ×2 (08:45→17:00)
[2019-04-20] MEDS: ATENOLOL 50 MG TAB PO SCH (08:45)
[2019-04-20] MEDS: GEMFIBROZIL 600 MG TAB PO SCH ×2 (08:45→17:00)
[2019-04-20] MEDS ORDERED: ZYPREXA5 MG PO (10:05)
[2019-04-20] MEDS ORDERED: LEVAQUIN500 MG PO (10:05)
[2019-04-20] MEDS ORDERED: DIVALPROEX SOD125 M1 PO (10:05)
[2019-04-20] MEDS: INSULIN LISPRO 100 UNIT/1 ML 3ML VIAL SQ SCH ×3 (10:30→16:30)
[2019-04-20] MEDS ORDERED: POTASSIUM CHLORIDE 20 MEQ TAB CR PO NR (10:30)
--- NOTE | 2019-04-20 11:14 | NUR ---
Received order for resume previous home health. CM placed call to pt's daughter Jen at [phone] and [phone] for choice. Left message for call back.
[2019-04-20 12:00] VITALS: BP 129/69
--- NOTE | 2019-04-20 13:25 | NUR ---
Received callback from pt's son in law Teo Fletcher. Informed him that plan is to discharge pt back home today. He stated they want to use pt's current home health [facility]. Signed choice letter placed in chart. Copy in pt's room. [facility] and clinical [facility]. CM called and spoke to Suad and informed her of pending discharge.
[2019-04-20 16:00] VITALS: BP 134/57
--- NOTE | 2019-04-20 17:48 | Progress Note ---
DATE: 04/20/2019 Psychiatric Progress Note SUBJECTIVE: The patient is evaluated and events noted. The patient is in the room. She is restless. She is dangling her feet out of bed. She is confused, oriented to self only. She is still not eating much. Staff reports that patient eats about 25% of her meal. She is not getting any p.r.n. medication. She is getting Depakote Sprinkle three times a day and no major side effects seen. ASSESSMENT: 1. Unspecified psychosis. 2. Unspecified dementia with behavior disturbances. PLAN: 1. Add Zyprexa 2.5 mg p.o. q.8h. 2. Monitor for psychosis and agitation. Dictated by Lenka Zuñiga PA-C Rohini Ayala MD QTV/MODL /[id number]
[2019-04-20] MEDS ORDERED: OLANZAPINE 5 MG TAB PO SCH (21:00)
--- NOTE | 2019-04-21 01:54 | Discharge Summary ---
ADMISSION DIAGNOSES: Urinary tract infection with sepsis present on admission, type 2 diabetes, history of atrial fibrillation, hyperlipidemia, AMS, acute kidney injury, sundowner, ambulatory dysfunction. DISCHARGE DIAGNOSES: Urinary tract infection with sepsis present on admission, type 2 diabetes, history of atrial fibrillation, hyperlipidemia, AMS, acute kidney injury, sundowner, ambulatory dysfunction, enterobacter cloacae of the urine. Rule out flu, rule out group A strep. HISTORY: The patient has a history of atrial fibrillation, type 2 diabetes, hyperlipidemia, sundowners, neuropathy, GI bleed, and seasonal allergies. SURGICAL HISTORY: Hysterectomy, appendectomy, cholecystectomy, tooth extraction, right total hip replacement, colon resection. FAMILY HISTORY: The patient's daughter has diabetes. The patient's sister and mom have cancer. The patient's sister had a stroke. SOCIAL HISTORY: Noncontributory. HOSPITAL COURSE: An 88-year-old female brought to the ER by family due to increased weakness and decreased p.o. intake. She has baseline AMS due to sundowner. Her symptoms began about 3 days ago. I spoke with the patient's son-in-law, Teo, regarding the HPI due to the patient's AMS. On admission, the patient was started on cefepime due to UTI. Urine culture came back positive for Enterobacter cloacae. Blood culture is negative. Throat culture negative. Flu culture negative. Group A strep negative. CT of the abdomen on admission showed large hiatal hernia and near total intrathoracic stomach. Extensive colonic diverticulosis without evidence of diverticulitis, age indeterminate mild superior endplate T11 compression deformity. Chest x-ray showed no evidence of pneumonia. CT of the brain showed no acute abnormalities. The patient had an MBS due to known aspiration, which showed modified barium swallow demonstrating laryngeal penetration with minimal aspiration. NMES was started per speech therapy recommendation. After speaking with the family, they only want her to return home, they do not want her to go to any [facility] or any other facilities, so she will be discharged home with Zyprexa and Depakote per Psych recommendation. She will also be given 4 more days of Levaquin for the UTI. She will continue other home medicines, but stop taking the clonazepam, gabapentin, and Seroquel per Psych recommendation. She will follow up with primary care in 1 to 2 weeks. Vital signs stable. The patient afebrile. The patient's son-in-law, Teo, understands discharge instructions and agrees to plan. Dictated by Yvrose Souza, PLASTICS SCIENTIST MD VICKI Pretty/MODL /[id number]
== END 2019-04-20 17:18 | disposition home or self-care (01) | DRG 872 ==
LOC: ER 14:13 → ERHOLD 18:17 → MED/SURG2 22:04
PROVIDERS: ADMIT Internal Medicine; ATTEND Internal Medicine
DX: A41.9 Sepsis, unspecified organism (principal); N17.9 Acute kidney failure, unspecified; F05 Delirium due to known physiological condition; G95.29 Other cord compression; F03.91 Unspecified dementia, unspecified severity, with behavioral disturbance; N39.0 Urinary tract infection, site not specified; I48.91 Unspecified atrial fibrillation; Z79.01 Long term (current) use of anticoagulants; R26.9 Unspecified abnormalities of gait and mobility; E11.9 Type 2 diabetes mellitus without complications; B96.89 Other specified bacterial agents as the cause of diseases classified elsewhere; K57.90 Diverticulosis of intestine, part unspecified, without perforation or abscess without bleeding; Z90.49 Acquired absence of other specified parts of digestive tract; E83.42 Hypomagnesemia; I44.0 Atrioventricular block, first degree
CPT/HCPCS: 36415; 70450; 71045; 74176; 74230; 80048; 80053; 81001; 82550; 82553; 82948; 83036; 83518; 83605; 83735; 83880; 84100; 84439; 84443; 84484; 85025; 85610; 85730; 86850; 86900; 87040; 87070; 87086; 87186; 87400; 93005; 96374; 96375; 97139; 99284; J0360; J1630; J2060; J2270; J2405; J3370; J3475; J7030